=== PATIENT | female | born 1950 | race Caucasian/White ===

== ENCOUNTER 2017-04-27 00:45 | Observation (INO) | payer OTHER ==
[~2017-04-27] VITALS: Ht 157.5 cm; Wt 74.5 kg
[~2017-04-27 00:45] MED LIST: BCTROWC NAE; CEFU1TAB35 PO; CLR10 PO; DXY100 PO; ETAN50IN2 SQ; FLNIN/ NAE; GABA-113 PO
[2017-04-27] MEDS ORDERED: ASPIRIN 81 MG CHEW PO STA (00:58)
[2017-04-27] MEDS ORDERED: MoRPHine SULFATE 4 MG/ML 1 ML CARP\\VIAL IV STA (00:58)
[2017-04-27] MEDS: NITROGLYCERIN 0.4 MG SL PER TAB CHARGE SL PRN ×2 (01:07→01:12)
[2017-04-27 01:13] LABS: BASO % 0.3 %; BASO ABS # 0.02 K/uL (0-0.2); COMPLETE YES; EOS % 2.2 %; HEMATOCRIT 40.2 % (37-47); IG% 0.2 %; LYMPH % 40.3 %; LYMPH ABS # 2.42 K/uL (1.2-3.4); MEAN CELL VOLUME 92.4 fL (80-100); MEAN CORPUSCULAR HEMOGLOBIN 31.5 pg (25-34); MEAN CORPUSCULAR HGB CONC 34.1 g/dl (32-36); MEAN PLATELET VOLUME 9.8 fL (7.4-10.4); MONO % 6.8 %; NEUT % 50.2 %; PLATELET COUNT 245 K/uL (130-400); RED BLOOD COUNT 4.35 M/uL (4.2-5.4); WHITE BLOOD COUNT 6.01 K/uL (4.8-10.8)
[2017-04-27 01:34] LABS: BUN/CREATININE RATIO 25.2 (10-20); CALCIUM 9.1 mg/dl (8.5-10.1); CREATININE 0.94 mg/dl (0.60-1.20); POTASSIUM 3.9 mmol/L (3.5-5.1)
[2017-04-27] MEDS ORDERED: OPTIRAY 320 IV PRN (01:45)
--- NOTE | 2017-04-27 02:54 | EMERGENCY ROOM VISIT NOTE ---
History Report prepared by Andresibjohn: Terry Thrasher Under the Supervision of: Dr. Ismael Johnson D.O. First contact with patient: 00:53 Chief Complaint: CHEST PAIN Stated Complaint: CP History of Present Illness The patient is a 66 year old female who presents to the Emergency Room with complaints of intermittent chest pain beginning shortly prior to arrival. She states that her pain began in her back and moved into her chest. She states that her pain is still present in her back. The patient states that her pain was a 8/10 in severity initially and is now about a 6/10 in severity. She states that she was laying in bed when her pain began. She also complains of improving SOB, diaphoresis, and nausea. The patient denies any recent injury or straining. She notes that her legs felt extremely "heavy" last night. She is on Gabapentin for restless leg syndrome. Source of History: patient Onset: shortly prior to arrival Position: chest Symptom Intensity: currently 6/10 Timing: intermittent Associated Symptoms: + diaphoresis, + SOB (improving), + nausea, + back pain Review of Systems See HPI for pertinent positives and negatives. A total of ten systems were reviewed and were otherwise negative. Past Medical & Surgical Medical Problems: (1) Ovarian cyst (2) Psoriasis (3) Psoriatic arthritis Surgical Problems: (1) History of appendectomy (2) History of cholecystectomy (3) History of hysterectomy (4) S/P RITESH-BSO Family History Diabetes mellitus FHx: heart disease Hypertension Social History Smoking Status: Never Smoker Alcohol Use: none Marital Status: Housing Status: lives with significant other Occupation Status: employed Current/Historical Medications Scheduled Gabapentin (Neurontin), 300 MG PO HS Allergies Coded Allergies: Codeine (Verified Allergy, Unknown, ., 04/27/17) Physical Exam Vital Signs Date Time Temp Pulse Resp B/P (MAP) Pulse Ox O2 Delivery O2 Flow Rate FiO2 04/27/17 03:01 68 12 114/67 98 Room Air 04/27/17 02:31 67 19 110/73 96 Room Air 04/27/17 02:16 122/62 04/27/17 02:11 109/65 04/27/17 02:06 113/65 04/27/17 02:01 69 18 111/65 100 Room Air 04/27/17 01:56 106/69 04/27/17 01:41 111/67 04/27/17 01:36 107/63 04/27/17 01:31 72 18 111/66 98 Room Air 04/27/17 01:23 69 22 115/70 99 Room Air 04/27/17 01:20 65 20 113/73 96 Room Air 04/27/17 01:16 85 20 80/48 96 Room Air 04/27/17 01:13 99 20 121/88 97 Room Air 04/27/17 01:06 82 04/27/17 01:05 97 Room Air 04/27/17 01:05 78 28 140/86 98 Room Air 04/27/17 00:54 98 Room Air 04/27/17 00:45 36.9 84 20 145/88 98 Room Air Physical Exam GENERAL: Awake, alert, well-appearing, in mild distress, diaphoretic HENT: Normocephalic, atraumatic. Oropharynx unremarkable. EYES: Normal conjunctiva. Sclera non-icteric. NECK: Supple. No nuchal rigidity. FROM. No JVD. RESPIRATORY: Clear to auscultation. CARDIAC: Regular rate, normal rhythm. Extremities warm and well perfused. Pulses equal. ABDOMEN: Soft, non-distended. No tenderness to palpation. No rebound or guarding. No masses. RECTAL: Deferred. MUSCULOSKELETAL: Chest examination reveals no tenderness. The back is symmetrical on inspection without obvious abnormality. There is no CVA tenderness to palpation. No joint edema. LOWER EXTREMITIES: Calves are equal size bilaterally and non-tender. No edema. No discoloration. NEURO: Normal sensorium. No sensory or motor deficits noted. SKIN: No rash or jaundice noted. Medical Decision & Procedures ER Provider Diagnostic Interpretation: One View Chest X-ray interpreted by me: no infiltrate. Normal mediastinum. No pneumothorax. CT results per statrad and my review. CT CHEST With Contrast: No consolidation. No pleural effusion or pneumothorax. Heart size is normal. No pericardial effusion. No central pulmonary embolus. No pathologically enlarged lymph nodes. Heterogenous nodule in the right lobe of the thyroid, 2.6 cm (2/5) . Recommend ultrasound for further evaluation. Gallbladder is surgically absent. Laboratory Results 04/27/17 00:55 Red Blood Count 4.35, Mean Corpuscular Volume 92.4, Mean Corpuscular Hemoglobin 31.5, Mean Corpuscular Hemoglobin Concent 34.1, Mean Platelet Volume 9.8, Neutrophils (%) (Auto) 50.2, Lymphocytes (%) (Auto) 40.3, Monocytes (%) (Auto) 6.8, Eosinophils (%) (Auto) 2.2, Basophils (%) (Auto) 0.3, Neutrophils # (Auto) 3.02, Lymphocytes # (Auto) 2.42, Monocytes # (Auto) 0.41, Eosinophils # (Auto) 0.13, Basophils # (Auto) 0.02 04/27/17 00:55 Test 04/27/17 00:55 04/27/17 01:06 White Blood Count 6.01 K/uL (4.8-10.8) Red Blood Count 4.35 M/uL (4.2-5.4) Hemoglobin 13.7 g/dL (12.0-16.0) Hematocrit 40.2 % (37-47) Mean Corpuscular Volume 92.4 fL (80-100) Mean Corpuscular Hemoglobin 31.5 pg (25-34) Mean Corpuscular Hemoglobin Concent 34.1 g/dl (32-36) Platelet Count 245 K/uL (130-400) Mean Platelet Volume 9.8 fL (7.4-10.4) Neutrophils (%) (Auto) 50.2 % Lymphocytes (%) (Auto) 40.3 % Monocytes (%) (Auto) 6.8 % Eosinophils (%) (Auto) 2.2 % Basophils (%) (Auto) 0.3 % Neutrophils # (Auto) 3.02 K/uL (1.4-6.5) Lymphocytes # (Auto) 2.42 K/uL (1.2-3.4) Monocytes # (Auto) 0.41 K/uL (0.11-0.59) Eosinophils # (Auto) 0.13 K/uL (0-0.5) Basophils # (Auto) 0.02 K/uL (0-0.2) RDW Standard Deviation 45.3 fL (36.4-46.3) RDW Coefficient of Variation 13.4 % (11.5-14.5) Immature Granulocyte % (Auto) 0.2 % Immature Granulocyte # (Auto) 0.01 K/uL (0.00-0.02) Anion Gap 7.0 mmol/L (3-11) Est Creatinine Clear Calc Drug Dose 56.3 ml/min Estimated GFR () 73.8 Estimated GFR (Non- 63.7 BUN/Creatinine Ratio 25.2 (10-20) Calcium Level 9.1 mg/dl (8.5-10.1) Total Bilirubin 0.5 mg/dl (0.2-1) Direct Bilirubin 0.1 mg/dl (0-0.2) Aspartate Amino Transf (AST/SGOT) 15 U/L (15-37) Alanine Aminotransferase (ALT/SGPT) 25 U/L (12-78) Alkaline Phosphatase 76 U/L (45-117) Total Protein 7.6 gm/dl (6.4-8.2) Albumin 3.7 gm/dl (3.4-5.0) Bedside Troponin I < 0.030 ng/ml (0-0.045) Laboratory results reviewed by me Medications Administered Medications (Trade) Dose Ordered Sig/Adithya Route Start Time Stop Time Status Last Admin Dose Admin Aspirin (Aspirin Chew) 324 mg NOW STAT PO 04/27/17 00:58 04/27/17 01:00 DC 04/27/17 01:06 324 MG Nitroglycerin (Nitrostat Tab) 0.4 mg PRN PRN SL 04/27/17 01:00 05/27/17 00:59 04/27/17 01:12 0.4 MG Morphine Sulfate (MoRPHine SULFATE INJ) 4 mg NOW STAT IV 04/27/17 00:58 04/27/17 01:00 DC 04/27/17 01:10 4 MG ECG Indication: chest pain Rate (beats per minute): 85 Rhythm: normal sinus Findings: other (incomplete RBBB. Left anterior hemiblock. LAD. ) ED Course 0054: The patient was evaluated in room A4A. A complete history and physical exam was performed. 0058: Ordered Morphine Sulfate 4 mg IV, Aspirin Chew 324 mg PO. 0100: Ordered Nitrostat Tab 0.4 mg SL. 0300: Upon reexamination, the patient was resting comfortably. I discussed the test results and treatment plan with her. The patient will be evaluated for further management. Spoke with hospitalist, pain free, given asa; will admit for r/o chest pain; no dissection on CT Medical Decision Differential diagnosis: Etiologies such as cardiac ischemia, aortic dissection, pulmonary embolism, pneumonia, pneumothorax, musculoskeletal, infections, pericarditis, myocarditis , esophageal rupture, gastrointestinal, as well as others were entertained. Consults Time Called: [phone] Consulting Physician: Dr. Ventura Garcia Returned Call: [phone] Discussed the patient's case. The patient will be evaluated for further treatment and disposition. Impression Primary Impression: Acute chest pain Scribe Attestation The scribe's documentation has been prepared under my direction and personally reviewed by me in its entirety. I confirm that the note above accurately reflects all work, treatment, procedures, and medical decision making performed by me. Departure Information Dispostion Being Evaluated By Hospitalist Referrals Mick Downey M.D. (PCP) Patient Instructions My [facility]
--- NOTE | 2017-04-27 03:03 | History and Physical ---
History & Physical Date & Time of Service: Apr 27, 2017 at 03:03 . Chief Complaint: chest pain . Primary Care Physician: Mick Downey M.D. . History of Present Illness Source: patient, hospital records 66-year-old female. PCP is Dr. Mick Downey with [facility] in [place]. History of psoriasis and psoriatic arthritis. Developed back/chest pain this evening while watching TV. Pain started around 23:30. Experienced severe interscapular pain that radiated toward her right chest. It was associated with dyspnea, nausea, vomiting, diaphoresis. No hematemesis. She had eaten pork chops and salad earlier for dinner. Did not take any medications for relief at home. The pain persisted, so her brought her to the ED for evaluation. There she received aspirin, sublingual nitroglycerin, and IV morphine with relief of her symptoms. Pain-free at the time of my assessment. No known risk factors for ischemic heart disease. . Past Medical/Surgical History Chronic and Resolved Medical Problems: (1) Ovarian cyst Status: Resolved (2) Psoriasis Status: Chronic (3) Psoriatic arthritis Status: Chronic Surgical Problems: (4) S/P RITESH-BSO Status: Chronic (5) Status post appendectomy Status: Chronic (6) Status post cholecystectomy Status: Chronic . Family History Diabetes mellitus FHx: heart disease Hypertension Social History Smoking Status: Never Smoker Alcohol Use: very rare Marital Status: Occupational Status: employed Multi-Drug Resistant Organisms History of MDRO: No Allergies Coded Allergies: Codeine (Verified Allergy, Unknown, ., 04/27/17) Home Medications Scheduled Apremilast (Otezla 10 & 20 & 30 mg), 20 MG PO BID Gabapentin (Neurontin), 300 MG PO HS Review of Systems Constitutional: No fever, No weight loss Eyes: No worsening of vision, No diplopia ENT: No nasal symptoms, No sore throat Respiratory: No cough Cardiovascular: + problem reported (as noted above in HPI) Abdomen: + nausea, + vomiting, No pain, No diarrhea, No GI bleeding Musculoskeletal: + joint pain, + muscle pain Genitourinary - Female: No dysuria, No hematuria Neurologic: + problem reported (mild headache) Endocrine: No excessive thirst, No excessive urination Hematologic / Lymphatic: No abnormal bleeding/bruising, No swollen lymph nodes Integumentary: + problem reported (psoriasis) Physical Exam Vital Signs Date Time Temp Pulse Resp B/P (MAP) Pulse Ox O2 Delivery O2 Flow Rate FiO2 04/27/17 01:23 69 22 115/70 99 Room Air 04/27/17 01:20 65 20 113/73 96 Room Air 04/27/17 01:16 85 20 80/48 96 Room Air 04/27/17 01:13 99 20 121/88 97 Room Air 04/27/17 01:06 82 04/27/17 01:05 97 Room Air 04/27/17 01:05 78 28 140/86 98 Room Air 04/27/17 00:54 98 Room Air 04/27/17 00:45 36.9 84 20 145/88 98 Room Air General Appearance: WD/WN, no apparent distress Head: normocephalic, atraumatic Eyes: normal inspection, PERRL, EOMI, sclerae normal ENT: hearing grossly normal, pharynx normal Neck: supple, no adenopathy, thyroid normal, trachea midline Respiratory/Chest: lungs clear, no respiratory distress, no accessory muscle use Cardiovascular: regular rate, rhythm, no edema, no gallop, no JVD, + systolic murmur (I/ systolic murmur at base), + pertinent finding (carotid + radial pulses 2/2 bilat) Abdomen/GI: normal bowel sounds, non tender, soft, no organomegaly, no pulsatile mass Extremities/Musculoskelatal: no calf tenderness, no pedal edema Neurologic/Psych: shredded filler machine wrapper layer II-XII nml as tested (PERRL, EOMI, no facial palsy, no dysarthria), no motor/sensory deficits (grossly intact), alert, normal mood/ affect, oriented x 3 Skin: warm/dry, + pertinent finding (psoriatic plaques) Diagnostics Laboratory Results Results Past 24 Hours Test 04/27/17 00:55 04/27/17 01:06 Range/Units White Blood Count 6.01 4.8-10.8 K/uL Red Blood Count 4.35 4.2-5.4 M/uL Hemoglobin 13.7 12.0-16.0 g/dL Hematocrit 40.2 37-47 % Mean Corpuscular Volume 92.4 80-100 fL Mean Corpuscular Hemoglobin 31.5 25-34 pg Mean Corpuscular Hemoglobin Concent 34.1 32-36 g/dl Platelet Count 245 130-400 K/uL Mean Platelet Volume 9.8 7.4-10.4 fL Neutrophils (%) (Auto) 50.2 % Lymphocytes (%) (Auto) 40.3 % Monocytes (%) (Auto) 6.8 % Eosinophils (%) (Auto) 2.2 % Basophils (%) (Auto) 0.3 % Neutrophils # (Auto) 3.02 1.4-6.5 K/uL Lymphocytes # (Auto) 2.42 1.2-3.4 K/uL Monocytes # (Auto) 0.41 0.11-0.59 K/uL Eosinophils # (Auto) 0.13 0-0.5 K/uL Basophils # (Auto) 0.02 0-0.2 K/uL RDW Standard Deviation 45.3 36.4-46.3 fL RDW Coefficient of Variation 13.4 11.5-14.5 % Immature Granulocyte % (Auto) 0.2 % Immature Granulocyte # (Auto) 0.01 0.00-0.02 K/uL Sodium Level 141 136-145 mmol/L Potassium Level 3.9 3.5-5.1 mmol/L Chloride Level 109 98-107 mmol/L Carbon Dioxide Level 25 21-32 mmol/L Anion Gap 7.0 3-11 mmol/L Blood Urea Nitrogen 24 7-18 mg/dl Creatinine 0.94 0.60-1.20 mg/dl Est Creatinine Clear Calc Drug Dose 56.3 ml/min Estimated GFR () 73.8 Estimated GFR (Non- 63.7 BUN/Creatinine Ratio 25.2 10-20 Random Glucose 112 70-99 mg/dl Calcium Level 9.1 8.5-10.1 mg/dl Total Bilirubin 0.5 0.2-1 mg/dl Direct Bilirubin 0.1 0-0.2 mg/dl Aspartate Amino Transf (AST/SGOT) 15 15-37 U/L Alanine Aminotransferase (ALT/SGPT) 25 12-78 U/L Alkaline Phosphatase 76 45-117 U/L Total Protein 7.6 6.4-8.2 gm/dl Albumin 3.7 3.4-5.0 gm/dl Bedside Troponin I < 0.030 0-0.045 ng/ml Diagnostic Radiology Chest x-ray reviewed by the undersigned (formal interpretation by Radiology pending): Normal cardiac silhouette; no infiltrates, effusions, CHF, pneumothorax. CT chest reviewed by the undersigned. Preliminary interpretation per [facility]: no consolidation no pleural effusion or pneumothorax heart size is normal no pericardial effusion no central pulmonary embolus no pathologically enlarged lymph nodes heterogeneous nodule in the right lobe of the thyroid 2.6 cm; recommend ultrasound for further evaluation. gallbladder is surgically absent . EKG EKG performed at 00:45 reviewed and demonstrated NSR at 85 / minute, no acute ST or T-wave abnormalities. . Impression Assessment and Plan CHEST PAIN Episode of severe back/chest pain at rest while watching TV. No acute EKG changes. First troponin normal. No apparent aortic dissection or pulmonary embolism per CTA. Check serial troponins and EKGs. Consult Cardiology. Check LFT's, amylase, lipase with morning labs. Consider upper GI evaluation as outpatient. THYROID NODULE 2.5 cm nodule right lower thyroid incidentally noted on CT of chest. US recommended for further evaluation. No thyroid mass appreciated per examination. Check TSH. Outpatient follow-up with PCP recommended. PSORIASIS / PSORIATIC ARTHRITIS Continue Otezla. VTE PROPHYLAXIS Low-moderate risk for VTE. SQ enoxaparin. Ambulate. RESUSCITATION STATUS Full code. DISPOSITION Observation status on Telemetry Unit. Expected discharge to home. Medical follow-up with Dr. Downey. . VTE Prophylaxis Given or contraindicated: Enoxaparin (Lovenox)SQ
[2017-04-27] MEDS ORDERED: NITROGLYCERIN 0.4 MG SL PER TAB CHARGE SL PRN (03:15)
[2017-04-27] MEDS ORDERED: ACETAMINOPHEN 325 MG TAB PO PRN (03:15)
[2017-04-27] MEDS ORDERED: MoRPHine SULFATE 2 MG/ML CARP IV PRN (03:15)
[2017-04-27 04:00] VITALS: BP 134/70; PULSE 68; TEMP 36.5; O2SAT 99; Ht 157.5 cm; Wt 74.5 kg
[2017-04-27] MEDS ORDERED: APRE1TAB4 PO (04:19)
[2017-04-27 05:56] LABS: ALT/SGPT 22 U/L (12-78); AMYLASE 48 U/L (25-115); AST/SGOT 12 U/L (15-37); BLOOD UREA NITROGEN 24 mg/dl (7-18); BUN/CREATININE RATIO 36.9 (10-20); CALCIUM 8.2 mg/dl (8.5-10.1); CARBON DIOXIDE 24 mmol/L (21-32); CHLORIDE 112 mmol/L (98-107); CREATININE 0.64 mg/dl (0.60-1.20); GLUCOSE 109 mg/dl (70-99); POTASSIUM 4.3 mmol/L (3.5-5.1); SODIUM 140 mmol/L (136-145)
[2017-04-27] MEDS ORDERED: IV FLUIDS COMPLETED PRN (06:00)
[2017-04-27 06:05] LABS: PROTHROMBIN TIME (PATIENT) 10.5 SECONDS (9.0-12.0)
[2017-04-27 06:11] LABS: ALKALINE PHOSPHATASE 62 U/L (45-117); CHOLESTEROL 123 mg/dl (0-200); CHOLESTEROL/HDL RATIO 2.7; HDL CHOLESTEROL 45 mg/dl; LDL CHOLESTEROL CALCULATED 48 mg/dl; THYROID STIMULATING HORMONE 0.293 uIu/ml (0.300-4.500); TRIGLYCERIDES 151 mg/dl (0-150); VERY LOW DENSITY LIPOPROT CALC 30 mg/dl
--- NOTE | 2017-04-27 06:51 | DIAGNOSTIC IMAGING REPORT ---
CHEST ONE VIEW PORTABLE CLINICAL HISTORY: 66 years-old Female presenting with CHEST PAIN. TECHNIQUE: Portable upright AP view of the chest was obtained. COMPARISON: 02/11/2016. FINDINGS: Cardiomediastinal silhouette normal. Lungs and pleural spaces clear. Osseous structures and upper abdomen normal. IMPRESSION: 1. No acute cardiopulmonary disease. Electronically signed by: Campos Doherty M.D. 04/27/2017 6:50 AM Dictated Date/Time: 04/27/2017 6:49 AM
--- NOTE | 2017-04-27 07:35 | DIAGNOSTIC IMAGING REPORT ---
CT SCAN OF THE CHEST WITH IV CONTRAST CLINICAL HISTORY: Atypical chest pain. COMPARISON STUDY: Chest x-ray dated 04/19/2017. TECHNIQUE: Following the IV administration of 92 cc of Optiray 320, CT scan of the thorax was performed from the thoracic inlet to the upper abdomen. Images are reviewed in the axial, sagittal, and coronal planes. IV contrast was administered without complication. A dose lowering technique was utilized adhering to the principles of ALARA. The examination is degraded by motion artifact. CT DOSE: 334.31 mGycm FINDINGS: Thyroid: Imaged portions of the thyroid gland appear enlarged and heterogeneous. There is a 2.3 cm low-attenuation nodule in the right thyroid lobe. Additional smaller nodules are seen bilaterally. Thoracic aorta: The thoracic aorta is normal in caliber and demonstrates standard 3-vessel arch anatomy. No dissection is seen. Pulmonary vasculature: The pulmonary trunk is normal in caliber. There are no filling defects identified in the central pulmonary vessels to indicate pulmonary embolus. Note that this examination was not protocoled for evaluation of the pulmonary arteries. Heart: The heart is mildly enlarged and without pericardial effusion. Lungs and pleural spaces: The lungs and pleural spaces are clear noting dependent atelectasis. The trachea and central airways are patent. Mediastinum: There is no mediastinal lymphadenopathy. Daxa: Clear. Axillae: There is no axillary lymphadenopathy. Upper abdomen: There is a tiny hiatal hernia. Cholecystectomy clips are noted. Skeletal structures: The skeletal structures are osteopenic. Mild degenerative change is present throughout the thoracic spine. No lytic or blastic bony lesions are seen. IMPRESSION: 1. The lungs are clear. 2. Mild cardiomegaly. 3. Enlarged thyroid gland with numerous nodules measuring up to 2.3 cm. Correlation with nonemergent thyroid ultrasound is recommended for further assessment. 4. No adenopathy is seen. Electronically signed by: Carl Hamilton M.D. 04/27/2017 7:34 AM Dictated Date/Time: 04/27/2017 7:30 AM
[2017-04-27 08:00] VITALS: BP 107/67; PULSE 68; TEMP 36.6; O2SAT 97
[2017-04-27] MEDS ORDERED: ENOXAPARIN 40 MG/0.4 ML SYR SC SCH (09:00)
[2017-04-27] MEDS ORDERED: APREMILAST PO SCH (09:00)
--- NOTE | 2017-04-27 09:49 | Procedure Note ---
Procedure Note Date of Service Apr 27, 2017. Procedure Note Nonischemic exercise stress echocardiogram pain likely secondary to muscle spasm and subsequent rib somatic dysfunction. no further cardiac testing necessary ok to d/c to home from cardiac standpoint full consult to follow
--- NOTE | 2017-04-27 10:37 | EXERCISE STRESS ECHO ---
*NOTICE TO RECEIVING DEMOCRAT AGENCY This information is strictly Confidential and protected under [place] law. [place] law prohibits you from making any further disclosure of this information unless further disclosure is expressly permitted by the written consent of the person to whom it pertains or is authorized by law. A general authorization for the release of medical or other information is not sufficient for this purpose. Hospital accepts no responsibility if the information is made available to any other person, INCLUDING THE PATIENT. Interpretation Summary * : PETAR PAUL Study Date: 04/27/2017 09:05 AM BP: 120/74 mmHg * Patient Location: .2E\S\E206\S\1 HR: 59 * : 1950 (M/d/yyyy) Gender: Female Height: 62 in * Age: 66 yrs Ethnicity: [place] Weight: 164 lb * Ordering Physician: Ismael Arellano * Referring Physician: Self, Referred * Performed By: Misti Dasilva [facility] * * Reason For Study: CHEST PAIN * BSA: 1.8 m2 * -- Conclusions -- * Nonischemic exercise stress echocardiogram. * No arrhythmias. * Normal HR and BP response to exercise. * Below average exercise tolerance. * At rest, normal LV chamber size with mild concentric LVH. * Normal LV systolic function, EF 55-60%. * No segmental left ventricular wall motion abnormalities are noted. * Grade I diastolic dysfunction. * Congenitally bicuspid aortic valve with mild calcifications, no stenosis or regurgitation. Procedure Details * ECHOEX, CPT #[id number] * ECHO COLOR FLOW, CPT #[id number] * ECHO DOPPLER, CPT #[id number] Left Ventricle * The left ventricle is normal in size. * There is mild concentric left ventricular hypertrophy. * Ejection Fraction = 55-60%. * Left ventricular systolic function is normal. * No segmental left ventricular wall motion abnormalities are noted. * Resting wall motion: Normal. Stress wall motion: Appropriate increase in Left ventricular systolic function and decrease in cavity size. No stress induced segmental wall motion abnormalities. Right Ventricle * The right ventricular cavity size is normal (basal dimension <4.2 cm in right ventricular apical 4-chamber view). * The right ventricular systolic function is normal as assessed by tricuspid annular plane systolic excursion (TAPSE) (normal >1.5 cm). Atria * The left atrial size is normal. * Right atrial size is normal. * No ASD detected; PFO is not assessed. Mitral Valve * The mitral valve is normal in structure and function. Tricuspid Valve * The tricuspid valve is normal in structure and function. Aortic Valve * The aortic valve is bicuspid. * Aortic valve sclerosis moderate, without significant aortic valvular stenosis. * There is no significant aortic regurgitation. Pulmonic Valve * The pulmonary valve is not well seen, but the Doppler examination is normal without significant regurgitation or stenosis. Great Vessels * The aortic root is normal size. Pericardium * There is no pericardial effusion. Stress Parameters * Normal baseline electrocardiogram. * Stress ECG: No ST changes. No arrhythmias. * No arrhythmia were noted with stress. * The stress portion of this study was personally supervised by the undersigned interpreting physician. * Rest heart rate was '59' BPM. * Rest blood pressure was '120/74' * Maximum heart rate achieved was 153 bpm. * Maximum heart rate was 98 % of maximum age-predicted heart rate. * Maximum blood pressure was '172/43' * Total exercise time was '06:30' * Maximum exercise MET level achieved was '7.70' METS * Maximum treadmill speed was '3.40' miles per hour. * Maximum treadmill elevation was '14.00'% grade. Left Ventricular Diastolic Function * Grade I diastolic dysfunction, (abnormal relaxation pattern). MMode 2D Measurements and Calculations IVSd 1.1 cm IVSs 1.1 cm LVIDd 4.2 cm LVIDs 2.9 cm LVPWd 1.1 cm LVPWs 1.2 cm IVS/LVPW 1.0 FS 30.3 % EDV(Teich) 76.7 ml ESV(Teich) 32.2 ml EF(Teich) 58.0 % EDV(cubed) 71.9 ml ESV(cubed) 24.4 ml EF(cubed) 66.1 % % IVS thick 1.5 % % LVPW thick 14.5 % LV mass(C)d 147.8 grams LV mass(C)dI 84.1 grams/m\S\2 LV mass(C)s 97.3 grams LV mass(C)sI 55.4 grams/m\S\2 SV(Teich) 44.5 ml SI(Teich) 25.4 ml/m\S\2 SV(cubed) 47.5 ml SI(cubed) 27.0 ml/m\S\2 Ao root diam 2.8 cm Ao root area 6.3 cm\S\2 LA dimension 3.3 cm LA/Ao 1.2 LVOT diam 1.9 cm LVOT area 2.8 cm\S\2 LVAd ap4 28.1 cm\S\2 LVLd ap4 7.1 cm EDV(MOD-sp4) 91.1 ml EDV(sp4-el) 95.1 ml LVAs ap4 18.7 cm\S\2 LVLs ap4 6.0 cm ESV(MOD-sp4) 48.0 ml ESV(sp4-el) 49.2 ml EF(MOD-sp4) 47.3 % EF(sp4-el) 48.2 % LVAd ap2 31.6 cm\S\2 LVLd ap2 7.3 cm EDV(MOD-sp2) 109.9 ml EDV(sp2-el) 116.4 ml LVAs ap2 20.3 cm\S\2 LVLs ap2 6.1 cm ESV(MOD-sp2) 55.0 ml ESV(sp2-el) 57.5 ml EF(MOD-sp2) 49.9 % EF(sp2-el) 50.6 % LVLd %diff 3.1 % EDV(MOD-bp) 103.5 ml LVLs %diff 1.0 % ESV(MOD-bp) 52.5 ml EF(MOD-bp) 49.3 % SV(MOD-sp4) 43.1 ml SI(MOD-sp4) 24.5 ml/m\S\2 SV(MOD-sp2) 54.9 ml SI(MOD-sp2) 31.2 ml/m\S\2 SV(MOD-bp) 51.0 ml SI(MOD-bp) 29.0 ml/m\S\2 SV(sp4-el) 45.8 ml SI(sp4-el) 26.1 ml/m\S\2 SV(sp2-el) 58.9 ml SI(sp2-el) 33.5 ml/m\S\2 Doppler Measurements and Calculations MV E max alejandra 99.2 cm/sec MV A max alejandra 126.7 cm/sec MV E/A 0.78 MV P1/2t max alejandra 109.5 cm/sec MV P1/2t 69.8 msec MVA(P1/2t) 3.2 cm\S\2 MV dec slope 459.6 cm/sec\S\2 MV dec time 0.25 sec Ao V2 max 207.2 cm/sec Ao max PG 17.2 mmHg Ao max PG (full) 14.2 mmHg CHIKI(V,A) 1.2 cm\S\2 CHIKI(V,D) 1.2 cm\S\2 LV V1 max PG 3.0 mmHg LV V1 max 86.8 cm/sec MR mean alejandra 121.1 cm/sec MR mean PG 7.2 mmHg MR VTI 40.1 cm PA V2 max 78.9 cm/sec PA max PG 2.5 mmHg TR max alejandra 246.6 cm/sec
--- NOTE | 2017-04-27 11:34 | CARDIOLOGY CONSULTATION ---
DATE OF CONSULTATION: 04/27/2017 CONSULTATION REQUESTED BY: Dr. Whitehead. REASON FOR CONSULTATION: Chest pain. HISTORY OF PRESENT ILLNESS: Mrs. Venegas is a very pleasant 66-year-old woman who presented to [facility] early in the a.m. of 04/27/2017 with a complaint of chest and back pain. The patient states that she went to bed last evening in her normal state of health and she was lying in bed, watching television with her when she suddenly developed severe back pain. She describes a very sharp stabbing pain that was severe enough to take her breath away. She also became nauseated with it due to the severity and she states that the pain started radiating around her rib cage and into her chest. The discomfort in her chest she describes as a chest pressure sensation. She never had any similar episodes in the past. This lasted for approximately 40 minutes and resolved on its own before any medical intervention. She was then brought into the Emergency Department by her . Initial evaluation was unremarkable and she was admitted to telemetry. A followup blood work overnight was unremarkable. Currently, the patient states that she is still sore in her mid back where the pain started, but otherwise feeling well and has no recurrence nearly as severe as her presentation. PAST SURGICAL HISTORY: 1. Cholecystectomy. 2. Appendectomy. 3. Total abdominal hysterectomy. MEDICAL ILLNESSES: 1. Recurrent ovarian cyst. 2. Psoriatic arthritis. FAMILY HISTORY: Denies any premature coronary artery disease or sudden cardiac . SOCIAL HISTORY: Denies any alcohol, tobacco or recreational drug use. She is . She lives at home with her . She has 4 children. 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 She does not exercise. REVIEW OF SYSTEMS: As per HPI, all other review of systems reviewed and negative at this time. ALLERGIES: CODEINE. MEDICATIONS AN OUTPATIENT: 1. Neurontin daily. 2. Otezla b.i.d. PHYSICAL EXAMINATION: VITALS: Temperature 36.6, pulse 68, respiratory rate 12, and blood pressure 107/67. GENERAL: Awake, alert, and oriented x3 in no acute distress. HEENT: Normocephalic and atraumatic. Pupils equal, round, and reactive to light and accommodation. Extraocular muscles intact. Anicteric sclerae. Moist mucous membranes. NECK: No JVD and no bruit. CARDIOVASCULAR: Regular. Positive S4. Normal S1 and S2. No S3. Slight 2/6 mid to late systolic ejection murmur greatest at the right sternal border second intercostal space without radiation. No rubs. PULMONARY: Clear to auscultation bilaterally. No rales, rhonchi, or wheezing. ABDOMEN: Bowel sounds x4. Soft. No rebound, guarding, or tenderness. No organomegaly. EXTREMITIES: No clubbing, cyanosis or edema. +2 pedal pulses bilaterally. SKIN: Warm and dry. MUSCULOSKELETAL: Direct palpation of her right mid scapular area was able to reproduce the discomfort. TEST RESULTS: Exercise stress echocardiogram was nonischemic with reduced exercise tolerance. Resting study did show a likely bicuspid aortic valve with mild sclerosis. No stenosis or regurgitation. IMPRESSION: 1. Chest pain. 2. Muscle spasm with concomitant somatic dysfunction of the right ribcage. 3. Congenital bicuspid aortic valve without stenosis or regurgitation. RECOMMENDATIONS: It was my pleasure to see Mrs. Venegas in consultation today. The patient was counseled that given the fact that her stress test was nonischemic, I do believe her chest pain is secondary to muscle spasm and concomitant somatic dysfunction of her right ribcage. So, no further cardiac testing or intervention is necessary at this time. I would recommend supportive care. Otherwise, no cardiac followup is necessary. No medications will be started at this point. I recommend she continue to follow with her primary care doctor for monitoring of her bicuspid aortic valve, but there is no indication for followup study at this point. Thank you very much for allowing me to participate in the care of your patient.
[2017-04-27 12:00] VITALS: BP 100/60; PULSE 72; TEMP 36.7; O2SAT 97
[2017-04-27 15:41] VITALS: BP 129/68; PULSE 71; TEMP 36.7; O2SAT 99
--- NOTE | 2017-04-27 16:48 | Discharge Instructions ---
Discharge Instructions Date of Service Apr 27, 2017. Admission Reason for Admission: Acute Chest Pain Discharge Discharge Diagnosis / Problem: Chest pain-noncardiac, likely 2/2 somatic dysfunction Discharge Goals Goal(s): Prevent Disease Progression Activity Recommendations Activity Limitations: per Instructions/Follow-up section . Instructions / Follow-Up Instructions / Follow-Up Please continue medications as instructed. It is recommended that you follow-up with Dr. Thompson (primary care physician ) within one week for follow-up from this hospitalization, and to make sure you are doing well post discharge. No further cardiac testing or cardiac follow-up is needed. You had a CT scan which revealed abnormal thyroid nodules, one which is 2.3cm, that will need to be followed up by your PCP. Specifically, it is recommended that you get a thyroid ultrasound of the nodule for evaluation, which can be ordered at your follow-up appointment. It was a pleasure taking care of you! Call if you have any questions or problems. You can reach a [facility] hospitalist on duty at [facility] 24 hours a day by calling [phone]. Take care of yourself. Charmaine Bell DO [facility] Hospitalist Current Hospital Diet Patient's current hospital diet: AHA Diet (Heart Healthy) Discharge Diet Recommended Diet: AHA Diet (Heart Healthy) Procedures Procedures Performed: Treadmill stress test TTE Pending Studies Studies pending at discharge: no Laboratory Results Lipid Panel Test 04/27/17 04:56 Range/Units Triglycerides Level 151 H 0-150 mg/dl Cholesterol Level 123 0-200 mg/dl HDL Cholesterol 45 mg/dl Cholesterol/HDL Ratio 2.7 LDL Cholesterol, Calculated 48 mg/dl Medical Emergencies . Who to Call and When: Medical Emergencies: If at any time you feel your situation is an emergency, please call 911 immediately. . Non-Emergent Contact Non-Emergency issues call your: Primary Care Provider . . "Provider Documentation" section prepared by Charmaine Bell. . VTE Core Measure Inpt VTE Proph given/why not?: Enoxaparin (Lovenox)SQ
--- NOTE | 2017-04-27 16:54 | Discharge Summary ---
Discharge Summary Date of Service Apr 27, 2017. Discharge Summary Admission Date: Apr 27, 2017 at 03:06 Discharge Date: Apr 27, 2017 Discharge Disposition: Home Principal Diagnosis: Chest pain likely somatic dysfunction Bicuspid Aortic Valve RLS Psoriatic Arthritis Procedures: Treadmill Stress Test Resting TTE Vaccinations: None. Consultations: Cardiology-Dr. Arellano Pending Studies/Follow-Up: see instructions below Medication Reconciliation Continued Medications: Apremilast (Otezla 10 & 20 & 30 mg) 1 Tab Tab 20 MG PO BID Gabapentin (Neurontin) 300 Mg Cap 300 MG PO HS, CAP Admission Information HPI (per Admitting provider): 66-year-old female. PCP is Dr. Mick Downey with [facility] in [place]. History of psoriasis and psoriatic arthritis. Developed back/chest pain this evening while watching TV. Pain started around 23:30. Experienced severe interscapular pain that radiated toward her right chest. It was associated with dyspnea, nausea, vomiting, diaphoresis. No hematemesis. She had eaten pork chops and salad earlier for dinner. Did not take any medications for relief at home. The pain persisted, so her brought her to the ED for evaluation. There she received aspirin, sublingual nitroglycerin, and IV morphine with relief of her symptoms. Pain-free at the time of my assessment. No known risk factors for ischemic heart disease. . Physical Exam (per Admitting): General Appearance: WD/WN, no apparent distress Head: normocephalic, atraumatic Eyes: normal inspection, PERRL, EOMI, sclerae normal ENT: hearing grossly normal, pharynx normal Neck: supple, no adenopathy, thyroid normal, trachea midline Respiratory/Chest: lungs clear, no respiratory distress, no accessory muscle use Cardiovascular: regular rate, rhythm, no edema, no gallop, no JVD, + systolic murmur (I/ systolic murmur at base), + pertinent finding (carotid + radial pulses 2/2 bilat) Abdomen/GI: normal bowel sounds, non tender, soft, no organomegaly, no pulsatile mass Extremities/Musculoskelatal: no calf tenderness, no pedal edema Neurologic/Psych: 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 Initial evaluation in the ER was unremarkable and she was admitted to telemetry for overnight monitoring. Serial cardiac enzymes were negative. She underwent a stress echocardiogram that was nonischemic with reduced exercise tolerance. The study did show a bicuspid aortic valve with mild sclerosis. No stenosis or regurgitation was present. Subsequently, her chest pain was thought 2/2 muscle spasm with concomitant somatic dysfunction of the right ribcage. She remained hemodynamically stable and afebrile. Physical exam on day of discharge was unremarkable; she was mentating clearly and was ambulatory. She was discharged in stable condition with close PCP followup. No further cardiac workup or follow-up was recommended. Total time spent on discharge = 60 minutes This includes examination of the patient, discharge planning, medication reconciliation, and communication with other providers. Discharge Instructions Discharge Instructions Date of Service Apr 27, 2017. Admission Reason for Admission: Acute Chest Pain Discharge Discharge Diagnosis / Problem: Chest pain-noncardiac, likely 2/2 somatic dysfunction Discharge Goals Goal(s): Prevent Disease Progression Activity Recommendations Activity Limitations: per Instructions/Follow-up section . Instructions / Follow-Up Instructions / Follow-Up Please continue medications as instructed. It is recommended that you follow-up with Dr. Thompson (primary care physician ) within one week for follow-up from this hospitalization, and to make sure you are doing well post discharge. No further cardiac testing or cardiac follow-up is needed. You had a CT scan which revealed abnormal thyroid nodules, one which is 2.3cm, that will need to be followed up by your PCP. Specifically, it is recommended that you get a thyroid ultrasound of the nodule for evaluation, which can be ordered at your follow-up appointment. It was a pleasure taking care of you! Call if you have any questions or problems. You can reach a [facility] hospitalist on duty at [facility] [address] 24 hours a day by calling [phone]. Take care of yourself. Charmaine Bell, DO [place] [facility] Hospitalist Additional Copies To Dr Mick Thompson
[2017-04-27 16:56] VITALS: BP 129/68; PULSE 71; TEMP 36.7; O2SAT 99
[2017-04-27] MEDS ORDERED: GABAPENTIN 300 MG CAP PO SCH (21:00)
== END 2017-04-27 17:47 | disposition home or self-care (01) ==
LOC: C.EDB 00:46 → C.2E 03:06 → ENRESERV 03:22
PROVIDERS: ADMIT Hospitalist; ATTEND Hospitalist
DX: R07.9 Chest pain, unspecified (principal); M62.838 Other muscle spasm; L40.9 Psoriasis, unspecified; L40.50 Arthropathic psoriasis, unspecified; Z90.89 Acquired absence of other organs; Z90.49 Acquired absence of other specified parts of digestive tract; Z90.710 Acquired absence of both cervix and uterus; Z83.3 Family history of diabetes mellitus; Z82.49 Family history of ischemic heart disease and other diseases of the circulatory system

== ENCOUNTER 2021-12-28 20:42 | Inpatient (IN) ==
[2021-12-28] MEDS ORDERED: SODIUM CHLORIDE 0.9% 1000ML 1,000 ML IV STA (20:53)
[2021-12-28] MEDS ORDERED: ONDANSETRON INJ 2 MG/ML 2 ML VIAL IV STA (20:53)
[2021-12-28] MEDS ORDERED: MoRPHine SULFATE 4 MG/ML 1 ML CARP\\VIAL IV STA ×2 (20:53→22:32)
[2021-12-28 21:05] LABS: Basophils # (auto) 0.02 K/uL (0-0.2); Basophils % (auto) 0.2 %; Eosinophils # (auto) 0.09 K/uL (0-0.5); Eosinophils % (auto) 0.8 %; Hemoglobin 14.2 g/dL (12.0-16.0); Immature Granulocytes # (auto) 0.01 K/uL (0.00-0.02); Immature Granulocytes % (auto) 0.1 %; Lymphocytes # (auto) 2.08 K/uL (1.2-3.4); Lymphocytes % (auto) 18.7 %; Mean Corpuscular Hemoglobin 31.7 pg (25-34); Mean Corpuscular Hgb Conc 34.6 g/dL (32-36); Mean Corpuscular Volume 91.5 fL (80-100); Monocytes # (auto) 0.56 K/uL (0.11-0.59); Neutrophils # (auto) 8.37 K/uL (1.4-6.5); Neutrophils % (auto) 75.2 %; Platelet Count 310 K/uL (130-400); RDW Coefficient of Variation 12.8 % (11.5-14.5); RDW Standard Deviation 43.1 fL (36.4-46.3); Red Blood Count 4.48 M/uL (4.2-5.4); White Blood Count 11.13 K/uL (4.8-10.8)
--- NOTE | 2021-12-28 21:17 | Emergency Department Note ---
History of Present Illness General Chief complaint: Abdominal Pain Stated complaint: DIVERTICULITIS FLARE Time Seen by Provider: 12/28/21 20:49 History of Present Illness Maximum Pain Intensity: 11 71-year-old female presents to the ED with a chief complaint of left lower quadrant abdominal pain. The patient had diverticulitis last week. She states that she was on a course of Augmentin and finished that yesterday. She states that her symptoms seem to be better the day that she left the ER. She states that her pain increased today after eating solids. The patient states that she had a last bowel movement today around 4 PM. The patient took Metamucil which seemed to cause her to have more bowel movements today. Her pain is worse with walking. It is also tender in the left lower quadrant when she pushes there. She is concerned about a perforation. Home Medications Medication Instructions Recorded Confirmed Type atorvastatin 10 mg tablet 10 mg PO QPM 02/28/21 12/28/21 History bupropion HCl 150 mg 24 hr tablet, 150 mg PO QPM 02/28/21 12/28/21 History extended release colesevelam 625 mg tablet 625 mg PO TID 02/28/21 12/28/21 History gabapentin 300 mg capsule 300 mg PO QID 02/28/21 12/28/21 History olmesartan 20 mg tablet 20 mg PO QPM 02/28/21 12/28/21 History aspirin 81 mg tablet,delayed 81 mg PO DAILY 11/02/21 12/28/21 History release guselkumab 100 mg/mL subcutaneous 100 mg SUBCUT .Q8WK 11/02/21 12/28/21 History auto-injector (Tremfya) hydrocodone 5 mg-acetaminophen 325 1 tab PO UD PRN 11/02/21 12/28/21 History mg tablet Saccharomyces boulardii 250 mg 250 mg PO BID #20 cap 12/21/21 12/28/21 Rx capsule (Florastor) ondansetron 4 mg disintegrating 4 mg PO Q6H PRN #14 tab 12/21/21 12/28/21 Rx tablet Allergies Allergy/AdvReac Type Severity Reaction Status Date / Time codeine AdvReac Intermediate HIT OR Verified 12/28/21 21:37 MISS, NAUSEA Past Med/Surg History Medical History Abnormal gynecological examination HX OF TOTAL OF 4 OVARIES AND 2 UTERUS...HX NUMEROUS VARIOUS OVARIAN BENIGN TUMORS Acid reflux Anxiety and depression Drug interaction PT REPORTS AFTER RECEIVING BOTH COVID 19 VACCINATIONS BECAME DEATHLY ILL WITH NAUSEA AND BODY ACHES. PT DISCUSSED WITH RHEUMATOLOGY AND TOLD WAS BELEIVED TO BE DUE TO REACTION BETWEEN COSENTYX AND THE VACCINE. HTN (hypertension) Hypercholesteremia Lyme disease Psoriasis Psoriatic arthritis Thyroid mass BENIGN MASS RIGHT THYROID Surgical History History of cataract surgery History of colonoscopy History of endoscopy S/P RITESH-BSO HX Status post appendectomy HX Status post cholecystectomy HX Family History Mother Family history of diabetes mellitus Social History Smoking Status: Never smoker Second Hand Exposure: No; Hx Alcohol Use: No Hx Substance Use: No Preferred Language: Gibraltarian Communication Ability: Effective Global Sourcing Manager Required: No Beliefs That Will Affect Care: None Current Living Situation: Spouse Current Living Situation Comment: LIVE ON FAMILY FARM Feels Safe at Home: Yes Assistive Devices: Glasses Review of Systems A total of 10 systems reviewed and were otherwise negative Physical Exam Vital Signs Vital Signs - 24 hr 12/28/21 20:42 12/28/21 22:53 Temperature 37.4 C Temperature Source Temporal Artery Scan Pulse Rate 121 H 76 Pulse Rate [Finger] 79 Pulse Rhythm Regular Pulse Rhythm [Finger] Regular Pulse Strength [Finger] Normal Respiratory Rate 20 16 Respiratory Effort / Characteristics Non-Labored Spontaneous Non-Labored Spontaneous Respiratory Depth Normal Normal Respiratory Pattern Regular Regular Blood Pressure 139/66 Blood Pressure [Right Arm] 131/75 Blood Pressure Mean 90 Blood Pressure Mean [Right Arm] 93 Blood Pressure Position Sitting Blood Pressure Position [Right Arm] Semi-fowlers Pulse Oximetry 97 99 Oxygen Delivery Method Room Air Room Air Sepsis Recent Fever Within 48 Hours No Sepsis New/Unexplained Change in Mental Status No Sepsis Action Taken by Nursing No Action Required CONSTITUTIONAL/VITAL SIGNS: Reviewed / noted above. GENERAL: Non-toxic in appearance. INTEGUMENTARY: Warm, dry, and [place]. HEAD: Normocephalic. EYES: without scleral icterus or trauma. ENT/OROPHARYNX: clear and moist. LYMPHADENOPATHY/NECK: Is supple without lymphadenopathy or meningismus. RESPIRATORY: Clear to auscultation bilaterally. No increased work of breathing. CARDIOVASCULAR: Regular rate and rhythm. GI/ABDOMEN: Soft and tender in the left lower quadrant.. No organomegaly or pulsatile mass. EXTREMITIES: Warm and well perfused. BACK: No CVA tenderness. NEUROLOGICAL: Intact without focal deficits. PSYCHIATRIC: normal affect. MUSCULOSKELETAL: Normally developed with good muscle tone. TRIAGE NURSING DOCUMENTATION REVIEWED. Course Administered Medications Piperacillin Sod/Tazobactam Sod (Zosyn) 4.5 gm in 120 mls @ 240 mls/hr IV NOW ONE Stop: 12/28/21 23:53 Last Admin: 12/28/21 23:31 Dose: 240 mls/hr Documented by: [id number] Discontinued Medications Sodium Chloride (Nss 1000ml) 1,000 mls @ 999 mls/hr IV .Q1H1M STA Stop: 12/28/21 21:53 Last Infusion: 12/28/21 22:48 Dose: 0 mls/hr Documented by: [id number] Admin: 12/28/21 21:01 Dose: 999 mls/hr Documented by: [id number] Ioversol (Optiray 320 125ml) 100 ml IV ONCE ONE Stop: 12/28/21 22:53 Last Admin: 12/28/21 23:08 Dose: 100 ml Documented by: [id number] Ioversol (Optiray 320 100ml) 100 ml IV ONCE ONE Stop: 12/28/21 22:55 Last Admin: 12/28/21 22:54 Dose: 93 ml Documented by: [id number] Morphine Sulfate (Morphine Sulfate 4 Mg/Ml 1 Ml Carp\Vial) 4 mg IV NOW STA Stop: 12/28/21 20:54 Last Admin: 12/28/21 21:01 Dose: 4 mg Documented by: [id number] Morphine Sulfate (Morphine Sulfate 4 Mg/Ml 1 Ml Carp\Vial) 4 mg IV NOW STA Stop: 12/28/21 22:33 Last Admin: 12/28/21 22:46 Dose: 4 mg Documented by: [id number] Ondansetron HCl (Ondansetron Inj 2 Mg/Ml 2 Ml Vial) 4 mg IV NOW STA Stop: 12/28/21 20:54 Last Admin: 12/28/21 21:01 Dose: 4 mg Documented by: [id number] Medical Decision Making Differential Diagnosis Differential considered: pancreatitis, hepatitis, acute cholecystitis, AAA, UTI, pyelonephritis, kidney stones, appendicitis, diverticulitis, shingles, bowel obstruction, mesenteric ischemia, intussusception,hernia. Medical Records Attestation: I reviewed the patient's medical records. Home Medications Current Medication List: was personally reviewed by me Laboratory Data Attestation: I reviewed the patient's lab results. Result diagrams: 12/28/21 20:56 12/28/21 20:56 Lab Results 12/28/21 12/28/21 12/28/21 Range/Units 20:56 20:56 22:50 WBC 11.13 H (4.8-10.8) K/uL RBC 4.48 (4.2-5.4) M/uL Hgb 14.2 (12.0-16.0) g/dL Hct 41.0 (37-47) % MCV 91.5 (80-100) fL MCH 31.7 (25-34) pg MCHC 34.6 (32-36) g/dL RDW Std Deviation 43.1 (36.4-46.3) fL RDW Coeff of Gisella 12.8 (11.5-14.5) % Plt Count 310 (130-400) K/uL MPV 10.0 (7.4-10.4) fL Immature Gran % (Auto) 0.1 % Neut % (Auto) 75.2 % Lymph % (Auto) 18.7 % [place] % (Auto) 5.0 % Eos % (Auto) 0.8 % Baso % (Auto) 0.2 % Neut # (Auto) 8.37 H (1.4-6.5) K/uL Lymph # (Auto) 2.08 (1.2-3.4) K/uL [place] # (Auto) 0.56 (0.11-0.59) K/uL Eos # (Auto) 0.09 (0-0.5) K/uL Baso # (Auto) 0.02 (0-0.2) K/uL Immature Gran # (Auto) 0.01 (0.00-0.02) K/uL Sodium 137 (136-145) mmol/L Potassium 3.8 (3.5-5.1) mmol/L Chloride 104 (98-107) mmol/L Carbon Dioxide 24 (21-32) mmol/L Anion Gap 9 (3-11) BUN 15 (6-23) mg/dl Creatinine 0.77 (0.6-1.2) mg/dl Est Cr Clr Drug Dosing Not Reportable Est GFR ( Amer) 90.7 ml/min Est GFR (Non-Af Amer) 78.2 ml/min BUN/Creatinine Ratio 19.5 (10-20) Glucose 101 H (70-99(Fasting)) mg/dl Calcium 9.7 (8.5-10.1) mg/dl Total Bilirubin 0.6 (0.2-1.0) mg/dl AST 13 (13-39) U/L ALT 12 (7-52) U/L Alkaline Phosphatase 103 (34-104) U/L Total Protein 7.6 (6.0-8.3) gm/dl Albumin 4.5 (3.4-5.0) gm/dl Globulin 3.1 (2.5-4.0) gm/dl Albumin/Globulin Ratio 1.5 (0.9-2) Lipase 36 (11-82) U/L Urine Color Yellow Urine Appearance Clear (Clear) Urine pH 5.5 (4.5-7.5) Ur Specific [place] 1.018 (1.000-1.030) Urine Protein Negative (Negative) Urine Glucose (UA) Negative (Negative) Urine Ketones Negative (Negative) Urine Blood Negative (Negative) Urine Nitrite Negative (Negative) Urine Bilirubin Negative (Negative) Urine Urobilinogen Negative (Negative) Ur Leukocyte Esterase Negative (Negative) Imaging Data Radiologist's Impression: CT scan of the abdomen pelvis shows worsening diverticulitis. MDM Narrative 71-year-old female presents with left lower quadrant abdominal pain in the setting of just completing a course of antibiotics yesterday for diverticulitis. Vital signs reveal tachycardia. Exam reveals tenderness in the left lower quadrant. The patient CBC was unremarkable. Chemistry panel was unremarkable. Urine did not show infection. CT scan of the abdomen pelvis shows worsening diverticulitis. The patient will be admitted by the hospitalist. She was treated with IV Zosyn here. She was also given IV morphine for pain. She was given IV Zofran and IV fluids. Impression & Plan Acute diverticulitis Discharge Plan Visit Data Chief Complaint: Abdominal Pain Stated Complaint: DIVERTICULITIS FLARE ED Provider: Singh Muhammad Discharge Problem: Acute diverticulitis Patient Disposition: Being Evaluated by Hospitalist Forms Stand Alone Forms: My [facility] Prescriptions Prescriptions: No Action atorvastatin 10 mg tablet 10 mg PO QPM RF: 0 colesevelam 625 mg tablet 625 mg PO TID RF: 0 gabapentin 300 mg capsule 300 mg PO QID RF: 0 olmesartan 20 mg tablet 20 mg PO QPM RF: 0 bupropion HCl 150 mg tablet extended release 24 hr 150 mg PO QPM RF: 0 Tremfya 100 mg/mL Auto-Injector 100 mg SUBCUT .Q8WK RF: 0 hydrocodone-acetaminophen 5-325 mg Tablet 1 tab PO UD PRN (Reason: Pain) RF: 0 aspirin 81 mg Tablet,Delayed Release (Dr/Ec) 81 mg PO DAILY RF: 0 ondansetron 4 mg tablet,disintegrating 4 mg PO Q6H PRN (Reason: nausea and vomiting) Qty: 14 RF: 0 Saccharomyces boulardii [Florastor] 250 mg capsule 250 mg PO BID Qty: 20 RF: 0 Referrals Referrals: Mick Downey [Primary Care Provider] -
[2021-12-28 21:26] LABS: Alanine Aminotransferase 12 U/L (7-52); Albumin Globulin Ratio 1.5 (0.9-2); Albumin Level 4.5 gm/dl (3.4-5.0); Alkaline Phosphatase 103 U/L (34-104); Anion Gap 9 (3-11); Aspartate Aminotransferase 13 U/L (13-39); BUN Creatinine Ratio 19.5 (10-20); Bilirubin,Total 0.6 mg/dl (0.2-1.0); Blood Urea Nitrogen 15 mg/dl (6-23); Calcium 9.7 mg/dl (8.5-10.1); Carbon Dioxide 24 mmol/L (21-32); Chloride 104 mmol/L (98-107); Est GFR (African American) 90.7 ml/min; Est GFR (Non-African American) 78.2 ml/min; Globulin 3.1 gm/dl (2.5-4.0); Glucose 101 mg/dl (70-99(Fasting)); Lipase 36 U/L (11-82); Potassium 3.8 mmol/L (3.5-5.1); Sodium 137 mmol/L (136-145); Total Protein 7.6 gm/dl (6.0-8.3)
[2021-12-28] MEDS ORDERED: OPTIRAY 320 125ml IV ONE (22:52)
[2021-12-28] MEDS ORDERED: OPTIRAY 320 100ml IV ONE (22:54)
[2021-12-28 23:23] LABS: Appearance Urine Clear (Clear); Bilirubin Urine Negative (Negative); Blood Urine Negative (Negative); Color Urine Yellow; Glucose Urine UA Negative (Negative); Ketones Urine Negative (Negative); Leukocyte Esterase Urine Negative (Negative); Nitrite Urine Negative (Negative); Protein Urine Negative (Negative); Specific Gravity Urine 1.018 (1.000-1.030); Urobilinogen Urine Negative (Negative); pH Urine 5.5 (4.5-7.5)
[2021-12-28] MEDS ORDERED: PIPERACILLIN/TAZOBACTAM 4.5 GM/120 ML BAG IV ONE (23:24)
[2021-12-28] MEDS ORDERED: PIPERACILL/TAZOBAC CONSULT ACTIVE PRN (23:24)
[2021-12-29] MEDS ORDERED: ZOLPIDEM TARTRATE 5 MG TAB PO STA (00:22)
[2021-12-29] MEDS ORDERED: HYDROmorphone INJ 0.5 MG/0.5 ML SYR IV STA (01:04)
[2021-12-29] MEDS ORDERED: ONDANSETRON INJ 2 MG/ML 2 ML VIAL IV PRN (01:27)
[2021-12-29] MEDS ORDERED: ACETAMINOPHEN 325 MG TAB PO PRN (01:27)
[2021-12-29] MEDS ORDERED: HYDROmorphone INJ 0.5 MG/0.5 ML SYR IV PRN (01:27)
[2021-12-29] MEDS: D5W AND 1/2NSS 1,000 ML IV SCH ×3 (02:57→16:43)
[2021-12-29] MEDS: PIPERACILLIN/TAZOBACTAM 3.375 GM in DEXTROSE 5% 100 ML IV SCH ×3 (03:59→19:36)
--- NOTE | 2021-12-29 07:42 | History and Physical Report ---
DATE OF ADMISSION: 12/29/2021. CHIEF COMPLAINT: Abdominal pain. HISTORY OF PRESENT ILLNESS: This is a 71-year-old female with past medical history significant for history of calculus of kidney, psoriasis, psoriatic arthropathy, depression, hypertension, hyperlipidemia, who presents with abdominal pain. The patient was seen in the ER on 12/21/2021. At that time, CAT scan showed diverticulitis, was discharged with Augmentin. The patient finished the course of Augmentin yesterday, but pain is getting worse. That is the reason she came here and CAT preliminary report is showing worsening diverticulitis, so we were called for admission. The patient denies any fever or chills, had a normal bowel movement today. Denies any blood in stool or black stools. Normal bladder movements. Denies any nausea. She is only taking soups for the last about one to two weeks. Denies any chest pain, no shortness of breath. No headache, no blurred visions, no earache, no runny nose, no sore throat. Ambulating okay. Currently, resting comfortably and hemodynamically stable. ALLERGIES: CODEINE. PAST MEDICAL HISTORY: As mentioned above. PAST SURGICAL HISTORY: Laparoscopic exploration of total hysterectomy. MEDICATIONS: The patient is on aspirin 81 mg p.o. daily, atorvastatin 10 mg p.o. daily, bupropion 150 mg p.o. p.m., colesevelam 625 mg p.o. t.i.d., gabapentin 300 mg p.o. q.i.d., hydrocodone/acetaminophen 1 tablet p.r.n., olmesartan 20 mg p.o. q.p.m., Zofran 4 mg p.o. q. 6 hours p.r.n., Florastor 250 mg p.o. b.i.d., Tremfya 100 mg subcutaneous q. 8 weeks. FAMILY HISTORY: Significant for mother has psoriatic arthritis, father is semi- paralyzed secondary to accident. SOCIAL HISTORY: . Quit smoking in 1995, smoked half pack a day for 4 years. No alcohol use. No drug use. REVIEW OF SYSTEMS: As per HPI. Rest of review of systems is negative. PHYSICAL EXAMINATION: GENERAL: The patient is of moderate build, not in acute distress. VITAL SIGNS: Temperature 37.4, pulse 76, respiratory rate 16, blood pressure 131/75, oxygen 99% on room air. HEENT: Pupils equal, round and reactive to light. Oral mucosa moist and dry. NECK: No JVD, no neck masses. CARDIOVASCULAR: S1 and S2 heard. Regular rate and rhythm. No murmur, no gallop. RESPIRATORY SYSTEM: Normal AP diameter. No accessory muscle use. No wheezing, no crackles. ABDOMEN: Soft, bowel sounds present. Left lower quadrant tenderness present. Guarding present. No rigidity, no distention. CENTRAL NERVOUS SYSTEM: Cranial nerves II through XII are grossly intact, nonfocal. EXTREMITIES: No edema, no erythema. LABORATORY DATA: WBC 11.1, hemoglobin 14.2, hematocrit 41, platelets 310. Sodium 137, potassium 3.8, chloride 104, bicarbonate 24, BUN 15, creatinine 0.7, serum glucose 101, calcium 9.7, total bilirubin 0.6, AST 33, ALT 12, alkaline phosphatase 103. Lipase 36. Urinalysis negative. SARS-CoV-2 rapid test negative. IMAGING DATA: CT of abdomen and pelvis preliminary report worsening diverticulitis. ASSESSMENT AND PLAN: This 71-year-old female presents with diverticulitis. 1. Diverticulitis: Failed outpatient treatment with Augmentin. Worsening diverticulitis on preliminary report of CAT scan. Received IV Zosyn in the ER, which will be continued. Continue with IV D5 half normal saline 125 mL per hour, n.p.o. except meds, IV Dilaudid p.r.n. Closely monitor in medical floor. Surgical consult in a.m. 2. History of hyperlipidemia: Continue statin and colesevelam. 3. History of hypertension: Continue olmesartan. 4. Depression: On bupropion. 5. History of psoriatic arthritis: On Tremfya subcutaneous every 8 weeks. 6. Deep venous thrombosis prophylaxis: Lovenox, sequential compression devices. DISPOSITION: Monitor in medical floor. PT/OT prior to discharge. Social service to help with discharge planning. Level 1 full code. Job ID: [id number] [facility]
[2021-12-29 07:44] LABS: Basophils # (auto) 0.01 K/uL (0-0.2); Basophils % (auto) 0.1 %; Eosinophils # (auto) 0.03 K/uL (0-0.5); Eosinophils % (auto) 0.4 %; Hematocrit (blood only) 34.6 % (37-47); Hemoglobin 11.7 g/dL (12.0-16.0); Immature Granulocytes # (auto) 0.01 K/uL (0.00-0.02); Immature Granulocytes % (auto) 0.1 %; Lymphocytes # (auto) 0.97 K/uL (1.2-3.4); Lymphocytes % (auto) 12.7 %; Mean Corpuscular Hemoglobin 31.5 pg (25-34); Mean Corpuscular Hgb Conc 33.8 g/dL (32-36); Mean Corpuscular Volume 93.3 fL (80-100); Mean Platelet Volume 10.2 fL (7.4-10.4); Monocytes # (auto) 0.64 K/uL (0.11-0.59); Monocytes % (auto) 8.4 %; Neutrophils # (auto) 5.95 K/uL (1.4-6.5); Neutrophils % (auto) 78.3 %; Platelet Count 233 K/uL (130-400); RDW Coefficient of Variation 13.2 % (11.5-14.5); Red Blood Count 3.71 M/uL (4.2-5.4); White Blood Count 7.61 K/uL (4.8-10.8)
--- NOTE | 2021-12-29 07:44 | CT Scan Report ---
CT abd pelvis IV con only CLINICAL HISTORY: llq abd pain . Previous history of diverticulitis COMPARISON STUDY: 12/20/2021 CT DOSE: 416.20 mGy.cm TECHNIQUE: Standard CT of the Abdomen and Pelvis was performed with IV contrast. A dose lowering christina hnique was utilized adhering to the principles of ALARA. Contrast Volume: Optiray 320, 93 ml. The patient did not receive oral contrast. FINDINGS: Lung base: The lung bases are clear. Abdominal cavity: There is no evidence for abdominal mass, adenopathy or ascites. Liver: There is homogeneous attenuation of the liver parenchyma. There is no evidence for enhancing m ass lesion. Spleen: There is homogeneous attenuation of the splenic parenchyma. There is no enhancing mass lesion . Pancreas: There is homogeneous attenuation of the pancreatic parenchyma. There is no evidence for mas s lesion or peripancreatic fluid collection. Gall Bladder: Surgical clips are again seen. Adrenal glands: The adrenal glands are normal in size and attenuation. There is no evidence for enhan cing mass lesion. Kidneys: There is homogeneous attenuation of the renal parenchyma bilaterally. There is no evidence f or renal calculus or hydronephrosis. There is no evidence for enhancing mass. Bowel: Compared to the previous examination, there has been interval worsening of sigmoid diverticuli tis. Increased perisigmoidal inflammatory changes and fluid are present along with thickening of the small bowel wall. There is a more localized fluid collection seen within the bowel wall as noted on i mage [id number] which may represent early abscess formation. There is again no evidence for perforation or f ree air. There has been interval development of mild pelvic ascites as well. Additionally, there has been interval development of moderate fecal stasis throughout the remainder t he colon. No small bowel dilatation or obstruction is seen. There is a small hiatal hernia. Bladder: The bladder is within normal limits with no evidence for focal mass, calculus or diverticulu m. : There is no evidence for pelvic mass or adenopathy. Vasculature: There is no evidence for aneurysmal dilatation of the abdominal aorta. Osseous structures: There is no acute osseous pathology. Degenerative changes are again seen within t he spine. IMPRESSION: 1. Worsening of sigmoid diverticulitis with increased perisigmoidal inflammatory changes, wall thicke germaine and fluid within the pelvis. 2. There is also suspicion of localized fluid within the wall of the sigmoid colon suggesting possibl e early abscess. 3. There is no evidence for perforation or free air. 4. Interval development of moderate fecal stasis. ACT 112: Negative or not required by law. Electronically signed by: Adiel Yi M.D. 12/29/2021 7:42 AM
[2021-12-29 08:20] LABS: BUN Creatinine Ratio 18.4 (10-20); Calcium 8.2 mg/dl (8.5-10.1); Creatinine Clr Calc Pharmacy 66.8 ml/min; Est GFR (African American) 92.1 ml/min; Est GFR (Non-African American) 79.5 ml/min; Magnesium 1.8 mg/dl (1.7-2.4); Potassium 3.7 mmol/L (3.5-5.1)
[2021-12-29] MEDS: HYDROCODONE/ACETAMOPHEN 5/325MG TAB PO PRN ×2 (10:46→16:41)
[2021-12-29] MEDS: SACCHAROMYCES BOULARDII 250 MG CAP PO SCH ×2 (10:46→20:30)
[2021-12-29] MEDS: ASPIRIN 81 MG ECTAB PO SCH (10:46)
[2021-12-29] MEDS: GABAPENTIN 300 MG CAP PO SCH ×4 (10:46→20:29)
[2021-12-29] MEDS: ENOXAPARIN INJ 40 MG/0.4 ML SYR SQ SCH (10:48)
--- NOTE | 2021-12-29 16:13 | Hospitalist Progress Note ---
Date of Service December 29, 2021 and December 30, 2021 Assessment & Plan (1) Acute diverticulitis: Plan: Was in the ER on of this month with acute diverticulitis and was sent home on oral Augmentin Condition did not improve and the patient is back with increasing pain and nausea CT scan of the abdomen and pelvis showed:Acute Sigmoid diverticulitis with possible early abscess 1. Worsening of sigmoid diverticulitis with increased perisigmoidal inflammatory changes, wall thickening and fluid within the pelvis. 2. There is also suspicion of localized fluid within the wall of the sigmoid colon suggesting possible early abscess. 3. There is no evidence for perforation or free air. 4. Interval development of moderate fecal stasis. Has been on intravenous Zosyn General surgery consulted Clinically little better with decreasing abdominal symptoms We will continue current management and keep her n.p.o. (2) Left lower quadrant abdominal pain: Plan: Secondary to diverticulitis (3) HTN (hypertension): Plan: Blood pressure seems to be in the lower side of normal (4) Anxiety and depression: Plan: Continue home medications (5) Hypercholesteremia: Plan: Continue current medication DVT prophylaxis Subcu Lovenox Admission and Anticipated Discharge Date Admission Date: December 29, 2021 Subjective 12/29/2021 The patient was seen and examined in medical telemetry unit She complains to of left lower quadrant pain and the pain is worse with movement and oral intake of any fluid and/or food No fever and or chills 12/30/2021 The patient was seen and examined in medical floor She has been feeling a little better with decreasing abdominal pain and/or distention Bowel has not moved Review of Systems Review of Systems: All systems reviewed and are unremarkable except as noted below Gastrointestinal: Minimal abdominal distention and discomfort mainly in the left lower quadrant Physical Exam Physical Exam: Lying in bed comfortably Constitutional: well developed, well nourished, + ill appearing and + obese Eyes: PERRL, conjunctivae normal, anicteric sclerae ENMT: external ear and nose normal, oropharynx normal Neck: trachea midline, no thyromegaly Respiratory: no respiratory distress Auscultation: lungs clear to auscultation bilaterally Cardiovascular: Rate/Rhythm: regular rate and regular rhythm Heart Sounds: normal S1 and normal S2; no murmur Extremities: no edema Gastrointestinal (Abdomen): Inspection/Auscultation: + abdomen distended (Minimally distended) and normal bowel sounds (Sluggish) Percussion/Palpation: + abdomen tender (Left lower quadrant with minimal guarding and rigidity.) and abdomen soft Musculoskeletal: No acute arthritis in any joint Neurologic: Alert, awake and oriented x3. No focal sensory and motor deficit appreciated Results & Data Results & Data ([facility]) Vital Signs (Past 12 Hours) Vital Signs Temp Pulse Pulse Resp BP BP Pulse Ox 12/29/21 15:48 36.6 C 73 18 102/57 L 99 12/29/21 11:43 36.7 C 75 18 110/62 98 12/29/21 07:45 36.8 C 78 18 126/78 126/76 98 12/29/21 05:44 36.4 C L 73 18 107/70 Laboratory Results Short CBC 12/28/21 12/29/21 Range/Units 20:56 06:58 WBC 11.13 H 7.61 (4.8-10.8) K/uL Hgb 14.2 11.7 L (12.0-16.0) g/dL Hct 41.0 34.6 L (37-47) % Plt Count 310 233 (130-400) K/uL BMP 12/28/21 12/29/21 20:56 06:58 Sodium 137 137 Potassium 3.8 3.7 Chloride 104 105 Carbon Dioxide 24 27 BUN 15 14 Creatinine 0.77 0.76 Glucose 101 H 149 H Calcium 9.7 8.2 L Liver Function 12/28/21 Range/Units 20:56 Total Bilirubin 0.6 (0.2-1.0) mg/dl AST 13 (13-39) U/L ALT 12 (7-52) U/L Alkaline Phosphatase 103 (34-104) U/L Albumin 4.5 (3.4-5.0) gm/dl Urine 12/28/21 Range/Units 22:50 Urine Color Yellow Urine Appearance Clear (Clear) Urine pH 5.5 (4.5-7.5) Ur Specific [place] 1.018 (1.000-1.030) Urine Protein Negative (Negative) Urine Glucose (UA) Negative (Negative) Short CBC 12/30/21 Range/Units 05:53 WBC 6.76 (4.8-10.8) K/uL Hgb 11.5 L (12.0-16.0) g/dL Hct 35.1 L (37-47) % Plt Count 222 (130-400) K/uL BMP 12/30/21 05:53 Sodium 136 Potassium 3.5 Chloride 105 Carbon Dioxide 26 BUN 7 Creatinine 0.69 Glucose 131 H Calcium 8.2 L Medications Administered Current Inpatient Medications Acetaminophen (Acetaminophen 325 Mg Tab) 650 mg PO Q4H PRN PRN Reason: pain/fever Stop: 01/28/22 01:26 Hydrocodone Bitart/Acetaminophen (Hydrocodone/Acetamophen 5/325mg Tab) 1 tab PO Q6H PRN PRN Reason: Pain Stop: 01/12/22 01:26 Last Admin: 12/29/21 10:46 Dose: 1 tab Documented by: Aspirin (Aspirin 81 Mg Ectab) 81 mg PO DAILY NIDHI Stop: 01/28/22 08:59 Last Admin: 12/29/21 10:46 Dose: 81 mg Documented by: Atorvastatin Calcium (Atorvastatin 10 Mg Tab) 10 mg PO QPM NIDHI Stop: 01/28/22 20:59 Bupropion HCl (Bupropion Xl 150 Mg Tabcr) 150 mg PO QPM NIDHI Stop: 01/28/22 20:59 Enoxaparin Sodium (Enoxaparin Inj 40 Mg/0.4 Ml Syr) 40 mg SQ Q24H NIDHI Stop: 01/28/22 08:59 Last Admin: 12/29/21 10:48 Dose: Not Given Documented by: Gabapentin (Gabapentin 300 Mg Cap) 300 mg PO QID NIDHI Stop: 01/28/22 08:59 Last Admin: 12/29/21 12:05 Dose: 300 mg Documented by: Hydromorphone HCl (Hydromorphone Inj 0.5 Mg/0.5 Ml Syr) 0.5 mg IV Q3H PRN PRN Reason: Pain Stop: 01/12/22 01:26 Last Admin: 12/29/21 07:24 Dose: 0.5 mg Documented by: Dextrose/Sodium Chloride (D5w And 1/2nss) 1,000 mls @ 125 mls/hr IV .Q8H NIDHI Stop: 01/28/22 01:26 Last Admin: 12/29/21 09:43 Dose: 125 mls/hr Documented by: Piperacillin Sod/Tazobactam (Sod 3.375 gm/ Dextrose) 115 mls @ 28.75 mls/hr IV Q8H NIDHI; Protocol Stop: 01/08/22 03:59 Last Admin: 12/29/21 12:05 Dose: 28.8 mls/hr Documented by: Miscellaneous (Colesevelam 625 Mg - Order Awaiting Action) 1 ea N/A QS NIDHI Stop: 01/28/22 07:59 Last Admin: 12/29/21 07:31 Dose: Not Given Documented by: Miscellaneous Information (Piperacill/Tazobac Consult Active) 1 ea N/A UD PRN PRN Reason: Consult Stop: 01/27/22 23:23 Olmesartan (Olmesartan Medoxomil 20 Mg Tab) 20 mg PO QPM NIDHI Stop: 01/28/22 20:59 Ondansetron HCl (Ondansetron Inj 2 Mg/Ml 2 Ml Vial) 4 mg IV Q6H PRN PRN Reason: Nausea Stop: 01/28/22 01:26 Saccharomyces Boulardii (Saccharomyces Boulardii 250 Mg Cap) 250 mg PO BID NIDHI Stop: 01/28/22 08:59 Last Admin: 12/29/21 10:46 Dose: 250 mg Documented by:
[2021-12-29] MEDS: ATORVASTATIN 10 MG TAB PO SCH (20:29)
[2021-12-29] MEDS: OLMESARTAN MEDOXOMIL 20 MG TAB PO SCH (20:30)
[2021-12-29] MEDS: buPROPion XL 150 MG TABCR PO SCH (20:30)
[2021-12-30] MEDS: D5W AND 1/2NSS 1,000 ML IV SCH ×3 (00:53→17:22)
[2021-12-30] MEDS: PIPERACILLIN/TAZOBACTAM 3.375 GM in DEXTROSE 5% 100 ML IV SCH ×3 (04:09→20:30)
[2021-12-30 06:40] LABS: Basophils # (auto) 0.01 K/uL (0-0.2); Basophils % (auto) 0.1 %; Eosinophils # (auto) 0.02 K/uL (0-0.5); Eosinophils % (auto) 0.3 %; Hematocrit (blood only) 35.1 % (37-47); Hemoglobin 11.5 g/dL (12.0-16.0); Immature Granulocytes # (auto) 0.01 K/uL (0.00-0.02); Immature Granulocytes % (auto) 0.1 %; Lymphocytes % (auto) 16.3 %; Mean Corpuscular Hemoglobin 30.7 pg (25-34); Mean Corpuscular Hgb Conc 32.8 g/dL (32-36); Mean Corpuscular Volume 93.6 fL (80-100); Mean Platelet Volume 10.8 fL (7.4-10.4); Monocytes # (auto) 0.69 K/uL (0.11-0.59); Monocytes % (auto) 10.2 %; Neutrophils # (auto) 4.93 K/uL (1.4-6.5); Platelet Count 222 K/uL (130-400); RDW Coefficient of Variation 13.1 % (11.5-14.5); RDW Standard Deviation 44.8 fL (36.4-46.3); Red Blood Count 3.75 M/uL (4.2-5.4); White Blood Count 6.76 K/uL (4.8-10.8)
[2021-12-30 06:57] LABS: BUN Creatinine Ratio 10.1 (10-20); Calcium 8.2 mg/dl (8.5-10.1); Creatinine Clr Calc Pharmacy 73.6 ml/min; Est GFR (African American) 102.2 ml/min; Est GFR (Non-African American) 88.2 ml/min; Potassium 3.5 mmol/L (3.5-5.1)
[2021-12-30] MEDS: SACCHAROMYCES BOULARDII 250 MG CAP PO SCH ×2 (08:33→20:32)
[2021-12-30] MEDS: ASPIRIN 81 MG ECTAB PO SCH (08:33)
[2021-12-30] MEDS: ENOXAPARIN INJ 40 MG/0.4 ML SYR SQ SCH (08:34)
[2021-12-30] MEDS: GABAPENTIN 300 MG CAP PO SCH ×4 (10:24→20:31)
[2021-12-30] MEDS: ATORVASTATIN 10 MG TAB PO SCH (20:31)
[2021-12-30] MEDS: OLMESARTAN MEDOXOMIL 20 MG TAB PO SCH (20:32)
[2021-12-30] MEDS: buPROPion XL 150 MG TABCR PO SCH (20:32)
[2021-12-31] MEDS: D5W AND 1/2NSS 1,000 ML IV SCH ×3 (02:20→17:12)
[2021-12-31] MEDS: PIPERACILLIN/TAZOBACTAM 3.375 GM in DEXTROSE 5% 100 ML IV SCH ×3 (04:09→20:21)
[2021-12-31 06:28] LABS: Basophils # (auto) 0.01 K/uL (0-0.2); Basophils % (auto) 0.2 %; Eosinophils # (auto) 0.06 K/uL (0-0.5); Eosinophils % (auto) 1.3 %; Hemoglobin 11.1 g/dL (12.0-16.0); Immature Granulocytes # (auto) 0.01 K/uL (0.00-0.02); Immature Granulocytes % (auto) 0.2 %; Lymphocytes # (auto) 1.16 K/uL (1.2-3.4); Lymphocytes % (auto) 25.7 %; Mean Corpuscular Hgb Conc 33.6 g/dL (32-36); Mean Corpuscular Volume 92.2 fL (80-100); Mean Platelet Volume 10.6 fL (7.4-10.4); Monocytes % (auto) 11.1 %; Neutrophils # (auto) 2.78 K/uL (1.4-6.5); Neutrophils % (auto) 61.5 %; Platelet Count 205 K/uL (130-400); RDW Coefficient of Variation 12.8 % (11.5-14.5); RDW Standard Deviation 43.6 fL (36.4-46.3); Red Blood Count 3.58 M/uL (4.2-5.4); White Blood Count 4.52 K/uL (4.8-10.8)
[2021-12-31 06:48] LABS: BUN Creatinine Ratio 8.8 (10-20); Calcium 8.5 mg/dl (8.5-10.1); Creatinine Clr Calc Pharmacy 89.1 ml/min; Est GFR (African American) 108.9 ml/min; Est GFR (Non-African American) 93.9 ml/min; Potassium 3.2 mmol/L (3.5-5.1)
[2021-12-31] MEDS: ASPIRIN 81 MG ECTAB PO SCH (08:29)
[2021-12-31] MEDS: GABAPENTIN 300 MG CAP PO SCH ×4 (08:30→20:17)
[2021-12-31] MEDS: SACCHAROMYCES BOULARDII 250 MG CAP PO SCH ×2 (08:30→20:17)
[2021-12-31] MEDS: ENOXAPARIN INJ 40 MG/0.4 ML SYR SQ SCH (08:30)
[2021-12-31] MEDS ORDERED: POTASSIUM CHLORIDE CRTAB 20 MEQ TABCR PO STA (09:30)
--- NOTE | 2021-12-31 11:49 | Surgery Consultation ---
Date of Consultation December 31, 2021 Assessment & Plan (1) Diverticulitis: -Agree with abx -begin clears -making progress Present on Admission?: Yes History of Present Illness Attending Physician: Diane Meyers MD History of Present Illness This is a 71-year-old female with past medical history significant for history of calculus of kidney, psoriasis, psoriatic arthropathy, depression, hypertension, hyperlipidemia, who presented with abdominal pain and known diverticulitis who failed outpatient management. A previous CT scan showed diverticulitis and was discharged with Augmentin. The patient finished the course of Augmentin but had worsening pain. She denied fever or chills, had a normal bowel movements. She has no chest pain, no shortness of breath, no headache, no blurred visions, no earache, no runny nose, no sore throat.A repeat CT scan shows worsening diverticulitis with possible small abscess. Allergies Allergy/AdvReac Type Severity Reaction Status Date / Time codeine AdvReac Intermediate HIT OR Verified 12/28/21 21:37 MISS, NAUSEA Home Medications Medication Instructions Recorded Confirmed Type atorvastatin 10 mg tablet 10 mg PO QPM 02/28/21 12/28/21 History bupropion HCl 150 mg 24 hr tablet, 150 mg PO QPM 02/28/21 12/28/21 History extended release colesevelam 625 mg tablet 625 mg PO TID 02/28/21 12/28/21 History gabapentin 300 mg capsule 300 mg PO QID 02/28/21 12/28/21 History olmesartan 20 mg tablet 20 mg PO QPM 02/28/21 12/28/21 History aspirin 81 mg tablet,delayed 81 mg PO DAILY 11/02/21 12/28/21 History release guselkumab 100 mg/mL subcutaneous 100 mg SUBCUT .Q8WK 11/02/21 12/28/21 History auto-injector (Tremfya) hydrocodone 5 mg-acetaminophen 325 1 tab PO UD PRN 11/02/21 12/28/21 History mg tablet Saccharomyces boulardii 250 mg 250 mg PO BID #20 cap 12/21/21 12/28/21 Rx capsule (Florastor) ondansetron 4 mg disintegrating 4 mg PO Q6H PRN #14 tab 12/21/21 12/28/21 Rx tablet Patient History Medical History (Updated 12/29/21 @ 16:17 by Diane Meyers MD) Abnormal gynecological examination HX OF TOTAL OF 4 OVARIES AND 2 UTERUS...HX NUMEROUS VARIOUS OVARIAN BENIGN TUMORS Acid reflux Anxiety and depression Drug interaction PT REPORTS AFTER RECEIVING BOTH COVID 19 VACCINATIONS BECAME DEATHLY ILL WITH NAUSEA AND BODY ACHES. PT DISCUSSED WITH RHEUMATOLOGY AND TOLD WAS BELEIVED TO BE DUE TO REACTION BETWEEN COSENTYX AND THE VACCINE. HTN (hypertension) Hypercholesteremia Lyme disease Psoriasis Psoriatic arthritis Thyroid mass BENIGN MASS RIGHT THYROID Surgical History History of cataract surgery History of colonoscopy History of endoscopy S/P RITESH-BSO HX Status post appendectomy HX Status post cholecystectomy HX Family History Mother Family history of diabetes mellitus Social History Smoking Status: Never smoker Second Hand Exposure: No; Hx Alcohol Use: No Hx Substance Use: No Preferred Language: Sinhala Communication Ability: Effective Waredresser Required: No Beliefs That Will Affect Care: None marital status: Current Living Situation: Spouse Current Living Situation Comment: LIVE ON FAMILY FARM How many Children do You have: 1 Other Information That Helps Us Care for You: No Feels Safe at Home: Yes Safety Concerns: Feels Safe At This Time Assistive Devices: Glasses and Walker Review of Systems Constitutional: no fever, no chills and no anorexia Ear, Nose, Mouth, Throat: no problem reported Respiratory: no cough and no dyspnea Cardiovascular: no chest pain Gastrointestinal: + abdominal pain; no nausea, no vomiting and no change in bowel habits Genitourinary: no dysuria and no urinary hesitancy Musculoskeletal: no back pain, no neck pain and no joint pain Integumentary: no problem reported Neurologic: no localized weakness and no generalized weakness Psychiatric: no behavioral changes Hematologic / Lymphatic: no easy bleeding and no easy bruising Physical Exam Constitutional: WD/WN, vitals as above Eyes: PERRL, conjunctivae normal, anicteric sclerae ENMT: external ear and nose normal, oropharynx normal Neck: trachea midline Respiratory: normal respiratory effort, lungs clear to auscultation Cardiovascular: RRR, no murmur, no edema Gastrointestinal (Abdomen): Inspection/Auscultation: abdomen normal to inspection and normal bowel sounds; abdomen not distended and no abdominal surgical incision Percussion/Palpation: + abdomen tender (mild) and abdomen soft Musculoskeletal: Head/Neck/Chest: normocephalic and head atraumatic Skin: no rashes, warm and dry Psychiatric: A+Ox3, euthymic affect Results & Data ([facility]) Vital Signs (Past 12 Hours) Vital Signs Temp Pulse Resp BP Pulse Ox 12/31/21 07:23 36.8 C 74 18 133/[address] abd pelvis IV con only CLINICAL HISTORY: llq abd pain . Previous history of diverticulitis COMPARISON STUDY: 12/20/2021 CT DOSE: 416.20 mGy.cm TECHNIQUE: Standard CT of the Abdomen and Pelvis was performed with IV contrast. A dose lowering technique was utilized adhering to the principles of ALARA. Contrast Volume: Optiray 320, 93 ml. The patient did not receive oral contrast. FINDINGS: Lung base: The lung bases are clear. Abdominal cavity: There is no evidence for abdominal mass, adenopathy or ascites. Liver: There is homogeneous attenuation of the liver parenchyma. There is no evidence for enhancing mass lesion. Spleen: There is homogeneous attenuation of the splenic parenchyma. There is no enhancing mass lesion. Pancreas: There is homogeneous attenuation of the pancreatic parenchyma. There is no evidence for mass lesion or peripancreatic fluid collection. Gall Bladder: Surgical clips are again seen. Adrenal glands: The adrenal glands are normal in size and attenuation. There is no evidence for enhancing mass lesion. Kidneys: There is homogeneous attenuation of the renal parenchyma bilaterally. There is no evidence for renal calculus or hydronephrosis. There is no evidence for enhancing mass. Bowel: Compared to the previous examination, there has been interval worsening of sigmoid diverticulitis. Increased perisigmoidal inflammatory changes and fluid are present along with thickening of the small bowel wall. There is a more localized fluid collection seen within the bowel wall as noted on image 326 which may represent early abscess formation. There is again no evidence for perforation or free air. There has been interval development of mild pelvic ascites as well. Additionally, there has been interval development of moderate fecal stasis throughout the remainder the colon. No small bowel dilatation or obstruction is seen. There is a small hiatal hernia. Bladder: The bladder is within normal limits with no evidence for focal mass, calculus or diverticulum. : There is no evidence for pelvic mass or adenopathy. Vasculature: There is no evidence for aneurysmal dilatation of the abdominal aorta. Osseous structures: There is no acute osseous pathology. Degenerative changes are again seen within the spine. IMPRESSION: 1. Worsening of sigmoid diverticulitis with increased perisigmoidal inflammatory changes, wall thickening and fluid within the pelvis. 2. There is also suspicion of localized fluid within the wall of the sigmoid colon suggesting possible early abscess. 3. There is no evidence for perforation or free air. 4. Interval development of moderate fecal stasis.
--- NOTE | 2021-12-31 14:36 | Hospitalist Progress Note ---
Date of Service December 31, 2021 Assessment & Plan (1) Acute diverticulitis: Plan: Was in the ER on of this month with acute diverticulitis and was sent home on oral Augmentin Condition did not improve and the patient is back with increasing pain and nausea CT scan of the abdomen and pelvis showed:Acute Sigmoid diverticulitis with possible early abscess 1. Worsening of sigmoid diverticulitis with increased perisigmoidal inflammatory changes, wall thickening and fluid within the pelvis. 2. There is also suspicion of localized fluid within the wall of the sigmoid colon suggesting possible early abscess. 3. There is no evidence for perforation or free air. 4. Interval development of moderate fecal stasis. Has been on intravenous Zosyn General surgery consulted Clinically little better with decreasing abdominal symptoms Clinically much better today without any rebound tenderness and she has been passing gas but no bowel movement Will start clears orally and continue IV antibiotic Increase activity (2) Left lower quadrant abdominal pain: Plan: Secondary to diverticulitis (3) HTN (hypertension): Plan: Blood pressure seems to be in the lower side of normal (4) Anxiety and depression: Plan: Continue home medications (5) Hypercholesteremia: Plan: Continue current medication DVT prophylaxis Subcu Lovenox Admission and Anticipated Discharge Date Admission Date: December 29, 2021 Subjective 12/29/2021 The patient was seen and examined in medical telemetry unit She complains to of left lower quadrant pain and the pain is worse with movement and oral intake of any fluid and/or food No fever and or chills 12/30/2021 The patient was seen and examined in medical floor She has been feeling a little better with decreasing abdominal pain and/or distention Bowel has not moved 12/31/2021 The patient was seen and examined in medical floor She has been feeling a lot better but has not moved her bowel Abdominal pain is improved and denies any nausea no vomiting No fever and no chills Review of Systems Review of Systems: All systems reviewed and are unremarkable except as noted below Gastrointestinal: Minimal abdominal distention and discomfort mainly in the left lower quadrant Physical Exam Physical Exam: Lying in bed comfortably Constitutional: well developed, well nourished, + ill appearing and + obese Eyes: PERRL, conjunctivae normal, anicteric sclerae ENMT: external ear and nose normal, oropharynx normal Neck: trachea midline, no thyromegaly Respiratory: no respiratory distress Auscultation: lungs clear to auscultation bilaterally Cardiovascular: Rate/Rhythm: regular rate and regular rhythm Heart Sounds: normal S1 and normal S2; no murmur Extremities: no edema Gastrointestinal (Abdomen): Inspection/Auscultation: + abdomen distended (Minimally distended) and normal bowel sounds (Sluggish) P ercussion/Palpation: + abdomen tender (No guarding and no rigidity) and abdomen soft Musculoskeletal: No acute arthritis in any joint Neurologic: Alert, awake and oriented x3. No focal sensory and motor deficit appreciated Results & Data Results & Data ([facility]) Vital Signs (Past 12 Hours) Vital Signs Temp Pulse Resp BP Pulse Ox 12/31/21 07:23 36.8 C 74 18 133/74 96 Laboratory Results Short CBC 12/31/21 Range/Units 06:13 WBC 4.52 L (4.8-10.8) K/uL Hgb 11.1 L (12.0-16.0) g/dL Hct 33.0 L (37-47) % Plt Count 205 (130-400) K/uL BMP 12/31/21 06:13 Sodium 137 Potassium 3.2 L Chloride 108 H Carbon Dioxide 25 BUN 5 L Creatinine 0.57 L Glucose 143 H Calcium 8.5 Medications Administered Current Inpatient Medications Acetaminophen (Acetaminophen 325 Mg Tab) 650 mg PO Q4H PRN PRN Reason: pain/fever Stop: 01/28/22 01:26 Hydrocodone Bitart/Acetaminophen (Hydrocodone/Acetamophen 5/325mg Tab) 1 tab PO Q6H PRN PRN Reason: Pain Stop: 01/12/22 01:26 Last Admin: 12/29/21 16:41 Dose: 1 tab Documented by: Aspirin (Aspirin 81 Mg Ectab) 81 mg PO DAILY [facility] Stop: 01/28/22 08:59 Last Admin: 12/31/21 08:29 Dose: 81 mg Documented by: Atorvastatin Calcium (Atorvastatin 10 Mg Tab) 10 mg PO QPM [facility] Stop: 01/28/22 20:59 Last Admin: 12/30/21 20:31 Dose: 10 mg Documented by: Bupropion HCl (Bupropion Xl 150 Mg Tabcr) 150 mg PO QPM [facility] Stop: 01/28/22 20:59 Last Admin: 12/30/21 20:32 Dose: 150 mg Documented by: Enoxaparin Sodium (Enoxaparin Inj 40 Mg/0.4 Ml Syr) 40 mg SQ Q24H [facility] Stop: 01/28/22 08:59 Last Admin: 12/31/21 08:30 Dose: 40 mg Documented by: Gabapentin (Gabapentin 300 Mg Cap) 300 mg PO QID [facility] Stop: 01/28/22 08:59 Last Admin: 12/31/21 12:23 Dose: 300 mg Documented by: Hydromorphone HCl (Hydromorphone Inj 0.5 Mg/0.5 Ml Syr) 0.5 mg IV Q3H PRN PRN Reason: Pain Stop: 01/12/22 01:26 Last Admin: 12/29/21 07:24 Dose: 0.5 mg Documented by: Dextrose/Sodium Chloride (D5w And 1/2nss) 1,000 mls @ 125 mls/hr IV .Q8H [facility] Stop: 01/28/22 01:26 Last Admin: 12/31/21 11:06 Dose: 125 mls/hr Documented by: Piperacillin Sod/Tazobactam (Sod 3.375 gm/ Dextrose) 115 mls @ 28.75 mls/hr IV Q8H [facility]; Protocol Stop: 01/08/22 03:59 Last Admin: 12/31/21 11:43 Dose: 28.8 mls/hr Documented by: Miscellaneous (Colesevelam 625 Mg - Order Awaiting Action) 1 ea N/A QS [facility] Stop: 01/28/22 07:59 Last Admin: 12/31/21 07:30 Dose: Not Given Documented by: Miscellaneous Information (Piperacill/Tazobac Consult Active) 1 ea N/A UD PRN PRN Reason: Consult Stop: 01/27/22 23:23 Olmesartan (Olmesartan Medoxomil 20 Mg Tab) 20 mg PO QPM [facility] Stop: 01/28/22 20:59 Last Admin: 12/30/21 20:32 Dose: 20 mg Documented by: Ondansetron HCl (Ondansetron Inj 2 Mg/Ml 2 Ml Vial) 4 mg IV Q6H PRN PRN Reason: Nausea Stop: 01/28/22 01:26 Saccharomyces Boulardii (Saccharomyces Boulardii 250 Mg Cap) 250 mg PO BID [facility] Stop: 01/28/22 08:59 Last Admin: 12/31/21 08:30 Dose: 250 mg Documented by:
[2021-12-31] MEDS: ATORVASTATIN 10 MG TAB PO SCH (20:17)
[2021-12-31] MEDS: OLMESARTAN MEDOXOMIL 20 MG TAB PO SCH (20:17)
[2021-12-31] MEDS: buPROPion XL 150 MG TABCR PO SCH (20:18)
[2021-12-31] MEDS: ZOLPIDEM TARTRATE 5 MG TAB PO PRN (22:16)
[2022-01-01] MEDS: PIPERACILLIN/TAZOBACTAM 3.375 GM in DEXTROSE 5% 100 ML IV SCH ×3 (03:52→20:20)
[2022-01-01 06:04] LABS: Basophils # (auto) 0.01 K/uL (0-0.2); Basophils % (auto) 0.3 %; Eosinophils # (auto) 0.07 K/uL (0-0.5); Hematocrit (blood only) 32.5 % (37-47); Hemoglobin 10.9 g/dL (12.0-16.0); Lymphocytes # (auto) 1.32 K/uL (1.2-3.4); Lymphocytes % (auto) 37.7 %; Mean Corpuscular Hemoglobin 30.6 pg (25-34); Mean Corpuscular Hgb Conc 33.5 g/dL (32-36); Mean Corpuscular Volume 91.3 fL (80-100); Monocytes # (auto) 0.29 K/uL (0.11-0.59); Monocytes % (auto) 8.3 %; Neutrophils # (auto) 1.81 K/uL (1.4-6.5); Neutrophils % (auto) 51.7 %; Platelet Count 242 K/uL (130-400); RDW Coefficient of Variation 12.7 % (11.5-14.5); RDW Standard Deviation 42.9 fL (36.4-46.3); Red Blood Count 3.56 M/uL (4.2-5.4)
[2022-01-01 06:28] LABS: BUN Creatinine Ratio 6.3 (10-20); Calcium 8.7 mg/dl (8.5-10.1); Creatinine Clr Calc Pharmacy 80.6 ml/min; Est GFR (African American) 105.3 ml/min; Est GFR (Non-African American) 90.9 ml/min; Potassium 3.3 mmol/L (3.5-5.1)
[2022-01-01] MEDS: ASPIRIN 81 MG ECTAB PO SCH (08:30)
[2022-01-01] MEDS: GABAPENTIN 300 MG CAP PO SCH ×4 (08:30→20:24)
[2022-01-01] MEDS: ENOXAPARIN INJ 40 MG/0.4 ML SYR SQ SCH (08:31)
[2022-01-01] MEDS: SACCHAROMYCES BOULARDII 250 MG CAP PO SCH ×2 (08:31→20:25)
[2022-01-01] MEDS ORDERED: POTASSIUM CHLORIDE CRTAB 20 MEQ TABCR PO STA (09:01)
--- NOTE | 2022-01-01 09:54 | Surgery Progress Note ---
Date of Service January 01, 2022 Assessment & Plan (1) Diverticulitis: Plan: good progress con't IV abx i-2 more days full liquid diet Admission and Anticipated Discharge Date Admission Date: December 29, 2021 Subjective pain improved having BMs AF VSS Review of Systems Constitutional: no fever, no chills and no anorexia Respiratory: no cough and no dyspnea Cardiovascular: no chest pain Gastrointestinal: + abdominal pain (better); no nausea and no vomiting Genitourinary: no dysuria Musculoskeletal: no problem reported Neurologic: no localized weakness and no generalized weakness Physical Exam Constitutional: WD/WN, vitals as above Eyes: PERRL, conjunctivae normal, anicteric sclerae ENMT: external ear and nose normal, oropharynx normal Neck: trachea midline Respiratory: normal respiratory effort, lungs clear to auscultation Cardiovascular: RRR, no murmur, no edema Gastrointestinal (Abdomen): Inspection/Auscultation: abdomen normal to inspection and normal bowel sounds; abdomen not distended Percussion/Palpation: + abdomen tender (mild) and abdomen soft Skin: no rashes, warm and dry Results & Data ([facility]) Vital Signs (Past 12 Hours) Vital Signs Temp Pulse Resp BP Pulse Ox 01/01/22 07:05 36.6 C 67 16 130/77 97 12/31/21 22:21 36.6 C 73 16 138/77 98
[2022-01-01] MEDS: D5W AND 1/2NSS 1,000 ML IV SCH (11:29)
--- NOTE | 2022-01-01 14:43 | Hospitalist Progress Note ---
Date of Service January 01, 2022 Assessment & Plan (1) Acute diverticulitis: Plan: Was in the ER on of this month with acute diverticulitis and was sent home on oral Augmentin Condition did not improve and the patient is back with increasing pain and nausea CT scan of the abdomen and pelvis showed:Acute Sigmoid diverticulitis with possible early abscess 1. Worsening of sigmoid diverticulitis with increased perisigmoidal inflammatory changes, wall thickening and fluid within the pelvis. 2. There is also suspicion of localized fluid within the wall of the sigmoid colon suggesting possible early abscess. 3. There is no evidence for perforation or free air. 4. Interval development of moderate fecal stasis. Has been on intravenous Zosyn General surgery consulted Clinically little better with decreasing abdominal symptoms Clinically much better today without any rebound tenderness and she has been passing gas but no bowel movement Will start clears orally and continue IV antibiotic Clinically much better and diet has been advanced as tolerated Discontinue IV fluid Continue antibiotic for 2 more days intravenously Likely discharge in a day or 2 (2) Left lower quadrant abdominal pain: Plan: Secondary to diverticulitis (3) HTN (hypertension): Plan: Blood pressure seems to be in the lower side of normal (4) Anxiety and depression: Plan: Continue home medications (5) Hypercholesteremia: Plan: Continue current medication DVT prophylaxis Subcu Lovenox Admission and Anticipated Discharge Date Admission Date: December 29, 2021 Subjective 12/29/2021 The patient was seen and examined in medical telemetry unit She complains to of left lower quadrant pain and the pain is worse with movement and oral intake of any fluid and/or food No fever and or chills 12/30/2021 The patient was seen and examined in medical floor She has been feeling a little better with decreasing abdominal pain and/or distention Bowel has not moved 12/31/2021 The patient was seen and examined in medical floor She has been feeling a lot better but has not moved her bowel Abdominal pain is improved and denies any nausea no vomiting No fever and no chills 01/01/2022 The patient was seen and examined in medical floor She has been feeling much better today Abdominal pain is diminished, no nausea ,no vomiting Review of Systems Review of Systems: All systems reviewed and are unremarkable except as noted below Gastrointestinal: Abdominal pain and tenderness almost gone Physical Exam Physical Exam: Lying in bed comfortably Constitutional: well developed, well nourished, + ill appearing and + obese Eyes: PERRL, conjunctivae normal, anicteric sclerae ENMT: external ear and nose normal, oropharynx normal Neck: trachea midline, no thyromegaly Respiratory: no respiratory distress Auscultation: lungs clear to a uscultation bilaterally Cardiovascular: Rate/Rhythm: regular rate and regular rhythm Heart Sounds: normal S1 and normal S2; no murmur Extremities: no edema Gastrointestinal (Abdomen): Inspection/Auscultation: normal bowel sounds (Sluggish); abdomen not distended (Minimally distended) Percussion/Palpation: + abdomen tender (No guarding and no rigidity) and abdomen soft Musculoskeletal: No acute arthritis in any joint Neurologic: Alert, awake and oriented x3 Psychiatric: A+Ox3, euthymic affect Results & Data Results & Data ([facility]) Vital Signs (Past 12 Hours) Vital Signs Temp Pulse Resp BP Pulse Ox 01/01/22 14:30 36.6 C 83 16 119/69 96 01/01/22 14:01 37 C 90 14 101/54 L 95 01/01/22 07:05 36.6 C 67 16 130/77 97 Laboratory Results Short CBC 01/01/22 Range/Units 05:45 WBC 3.50 L (4.8-10.8) K/uL Hgb 10.9 L (12.0-16.0) g/dL Hct 32.5 L (37-47) % Plt Count 242 (130-400) K/uL BMP 01/01/22 05:45 Sodium 139 Potassium 3.3 L Chloride 108 H Carbon Dioxide 24 BUN 4 L Creatinine 0.63 Glucose 128 H Calcium 8.7 Medications Administered Current Inpatient Medications Acetaminophen (Acetaminophen 325 Mg Tab) 650 mg PO Q4H PRN PRN Reason: pain/fever Stop: 01/28/22 01:26 Hydrocodone Bitart/Acetaminophen (Hydrocodone/Acetamophen 5/325mg Tab) 1 tab PO Q6H PRN PRN Reason: Pain Stop: 01/12/22 01:26 Last Admin: 12/29/21 16:41 Dose: 1 tab Documented by: Aspirin (Aspirin 81 Mg Ectab) 81 mg PO DAILY [facility] Stop: 01/28/22 08:59 Last Admin: 01/01/22 08:30 Dose: 81 mg Documented by: Atorvastatin Calcium (Atorvastatin 10 Mg Tab) 10 mg PO QPM [facility] Stop: 01/28/22 20:59 Last Admin: 12/31/21 20:17 Dose: 10 mg Documented by: Bupropion HCl (Bupropion Xl 150 Mg Tabcr) 150 mg PO QPM [facility] Stop: 01/28/22 20:59 Last Admin: 12/31/21 20:18 Dose: 150 mg Documented by: Enoxaparin Sodium (Enoxaparin Inj 40 Mg/0.4 Ml Syr) 40 mg SQ Q24H [facility] Stop: 01/28/22 08:59 Last Admin: 01/01/22 08:31 Dose: 40 mg Documented by: Gabapentin (Gabapentin 300 Mg Cap) 300 mg PO QID [facility] Stop: 01/28/22 08:59 Last Admin: 01/01/22 13:33 Dose: 300 mg Documented by: Hydromorphone HCl (Hydromorphone Inj 0.5 Mg/0.5 Ml Syr) 0.5 mg IV Q3H PRN PRN Reason: Pain Stop: 01/12/22 01:26 Last Admin: 12/29/21 07:24 Dose: 0.5 mg Documented by: Piperacillin Sod/Tazobactam (Sod 3.375 gm/ Dextrose) 115 mls @ 28.75 mls/hr IV Q8H [facility]; Protocol Stop: 01/08/22 03:59 Last Admin: 01/01/22 11:47 Dose: 28.8 mls/hr Documented by: Miscellaneous (Colesevelam 625 Mg - Order Awaiting Action) 1 ea N/A QS [facility] Stop: 01/28/22 07:59 Last Admin: 01/01/22 08:31 Dose: Not Given Documented by: Miscellaneous Information (Piperacill/Tazobac Consult Active) 1 ea N/A UD PRN PRN Reason: Consult Stop: 01/27/22 23:23 Olmesartan (Olmesartan Medoxomil 20 Mg Tab) 20 mg PO QPM [facility] Stop: 01/28/22 20:59 Last Admin: 12/31/21 20:17 Dose: 20 mg Documented by: Ondansetron HCl (Ondansetron Inj 2 Mg/Ml 2 Ml Vial) 4 mg IV Q6H PRN PRN Reason: Nausea Stop: 01/28/22 01:26 Saccharomyces Boulardii (Saccharomyces Boulardii 250 Mg Cap) 250 mg PO BID [facility] Stop: 01/28/22 08:59 Last Admin: 01/01/22 08:31 Dose: 250 mg Documented by: Zolpidem Tartrate (Zolpidem Tartrate 5 Mg Tab) 5 mg PO HS PRN PRN Reason: Sleep Stop: 01/30/22 18:40 Last Admin: 12/31/21 22:16 Dose: 5 mg Documented by:
[2022-01-01] MEDS: OLMESARTAN MEDOXOMIL 20 MG TAB PO SCH (20:24)
[2022-01-01] MEDS: ATORVASTATIN 10 MG TAB PO SCH (20:24)
[2022-01-01] MEDS: buPROPion XL 150 MG TABCR PO SCH (20:25)
[2022-01-01] MEDS: ZOLPIDEM TARTRATE 5 MG TAB PO PRN (22:28)
[2022-01-02] MEDS: PIPERACILLIN/TAZOBACTAM 3.375 GM in DEXTROSE 5% 100 ML IV SCH ×2 (03:46→12:27)
[2022-01-02 06:42] LABS: Basophils # (auto) 0.03 K/uL (0-0.2); Basophils % (auto) 0.9 %; Eosinophils # (auto) 0.13 K/uL (0-0.5); Eosinophils % (auto) 3.7 %; Hematocrit (blood only) 34.2 % (37-47); Hemoglobin 11.5 g/dL (12.0-16.0); Lymphocytes # (auto) 1.68 K/uL (1.2-3.4); Lymphocytes % (auto) 47.9 %; Mean Corpuscular Hemoglobin 30.5 pg (25-34); Mean Corpuscular Hgb Conc 33.6 g/dL (32-36); Mean Corpuscular Volume 90.7 fL (80-100); Mean Platelet Volume 10.5 fL (7.4-10.4); Monocytes # (auto) 0.33 K/uL (0.11-0.59); Monocytes % (auto) 9.4 %; Neutrophils # (auto) 1.34 K/uL (1.4-6.5); Neutrophils % (auto) 38.1 %; Platelet Count 275 K/uL (130-400); RDW Coefficient of Variation 12.8 % (11.5-14.5); RDW Standard Deviation 42.3 fL (36.4-46.3); Red Blood Count 3.77 M/uL (4.2-5.4); White Blood Count 3.51 K/uL (4.8-10.8)
[2022-01-02 07:08] LABS: BUN Creatinine Ratio 11.9 (10-20); Creatinine Clr Calc Pharmacy 75.8 ml/min; Est GFR (African American) 103.2 ml/min; Est GFR (Non-African American) 89.1 ml/min; Potassium 3.4 mmol/L (3.5-5.1)
[2022-01-02] MEDS: GABAPENTIN 300 MG CAP PO SCH ×2 (08:30→12:26)
[2022-01-02] MEDS: SACCHAROMYCES BOULARDII 250 MG CAP PO SCH (08:30)
[2022-01-02] MEDS: ENOXAPARIN INJ 40 MG/0.4 ML SYR SQ SCH (08:30)
[2022-01-02] MEDS: ASPIRIN 81 MG ECTAB PO SCH (08:30)
[2022-01-02] MEDS ORDERED: POTASSIUM CHLORIDE 10 MEQ TABCR PO STA (09:04)
--- NOTE | 2022-01-02 11:34 | Surgery Progress Note ---
Date of Service January 02, 2022 Assessment & Plan (1) Diverticulitis: Plan: pain has resolved afebrile, no leukocytosis tolerating diet Has received 3 days of IV Zosyn Plan: Doing well. Will advance to low fiber diet. She would like to go home today since she is feeling great. Okay from surgery standpoint for discharge on home antibiotics for another 7-10 days as she failed outpatient PO abx initially. She should follow-up with surgeon in [place] as already scheduled low fiber diet for 4-[address] Morales has seen and examined pt, agrees with above. Admission and Anticipated Discharge Date Admission Date: December 29, 2021 Subjective Feeling great no abdominal pain, no n/v tolerating full liquids having bowel movements , passing gas ready to go home Physical Exam Constitutional: WD/WN, vitals as above no acute distress and not ill appearing Neck: normal visual inspection and trachea midline Respiratory: normal respiratory effort; no respiratory distress, no labored breathing and no retractions Gastrointestinal (Abdomen): Inspection/Auscultation: abdomen normal to inspection; abdomen not distended Percussion/Palpation: abdomen soft; abdomen nontender, no guarding and abdomen not rigid Skin: no rashes, warm and dry Psychiatric: A+Ox3, euthymic affect Results & Data ([facility]) Vital Signs (Past 12 Hours) Vital Signs Temp Pulse Resp BP Pulse Ox 01/02/22 07:02 36.5 C 77 16 130/75 96 Laboratory Results 01/02/22 01/02/22 Range/Units 06:00 06:00 WBC 3.51 L (4.8-10.8) K/uL RBC 3.77 L (4.2-5.4) M/uL Hgb 11.5 L (12.0-16.0) g/dL Hct 34.2 L (37-47) % MCV 90.7 (80-100) fL MCH 30.5 (25-34) pg MCHC 33.6 (32-36) g/dL RDW Std Deviation 42.3 (36.4-46.3) fL RDW Coeff of Gisella 12.8 (11.5-14.5) % Plt Count 275 (130-400) K/uL MPV 10.5 H (7.4-10.4) fL Immature Gran % (Auto) 0.0 % Neut % (Auto) 38.1 % Lymph % (Auto) 47.9 % [place] % (Auto) 9.4 % Eos % (Auto) 3.7 % Baso % (Auto) 0.9 % Neut # (Auto) 1.34 L (1.4-6.5) K/uL Lymph # (Auto) 1.68 (1.2-3.4) K/uL [place] # (Auto) 0.33 (0.11-0.59) K/uL Eos # (Auto) 0.13 (0-0.5) K/uL Baso # (Auto) 0.03 (0-0.2) K/uL Immature Gran # (Auto) 0.00 (0.00-0.02) K/uL Sodium 139 (136-145) mmol/L Potassium 3.4 L (3.5-5.1) mmol/L Chloride 105 (98-107) mmol/L Carbon Dioxide 26 (21-32) mmol/L Anion Gap 8 (3-11) BUN 8 (6-23) mg/dl Creatinine 0.67 (0.6-1.2) mg/dl Est Cr Clr Drug Dosing 75.8 ml/min Est GFR ( Amer) 103.2 ml/min Est GFR (Non-Af Amer) 89.1 ml/min BUN/Creatinine Ratio 11.9 (10-20) Glucose 105 H (70-99(Fasting)) mg/dl Calcium 9.0 (8.5-10.1) mg/dl
--- NOTE | 2022-01-02 15:28 | Discharge Summary ---
Date of Service January 02, 2022 Admission HPI Per Admitting Provider CHIEF COMPLAINT: Abdominal pain. HISTORY OF PRESENT ILLNESS: This is a 71-year-old female with past medical history significant for history of calculus of kidney, psoriasis, psoriatic arthropathy, depression, hypertension, hyperlipidemia, who presents with abdominal pain. The patient was seen in the ER on 12/21/2021. At that time, CAT scan showed diverticulitis, was discharged with Augmentin. The patient finished the course of Augmentin yesterday, but pain is getting worse. That is the reason she came here and CAT preliminary report is showing worsening diverticulitis, so we were called for admission. The patient denies any fever or chills, had a normal bowel movement today. Denies any blood in stool or black stools. Normal bladder movements. Denies any nausea. She is only taking soups for the last about one to two weeks. Denies any chest pain, no shortness of breath. No headache, no blurred visions, no earache, no runny nose, no sore throat. Ambulating okay. Currently, resting comfortably and hemodynamically stable. Admission Exam Per Admitting Provider GENERAL: The patient is of moderate build, not in acute distress. VITAL SIGNS: Temperature 37.4, pulse 76, respiratory rate 16, blood pressure 131/75, oxygen 99% on room air. HEENT: Pupils equal, round and reactive to light. Oral mucosa moist and dry. NECK: No JVD, no neck masses. CARDIOVASCULAR: S1 and S2 heard. Regular rate and rhythm. No murmur, no gallop. RESPIRATORY SYSTEM: Normal AP diameter. No accessory muscle use. No wheezing, no crackles. ABDOMEN: Soft, bowel sounds present. Left lower quadrant tenderness present. Guarding present. No rigidity, no distention. CENTRAL NERVOUS SYSTEM: Cranial nerves II through XII are grossly intact, nonfocal. EXTREMITIES: No edema, no erythema. Principal Diagnosis 35 minutes Discharge Exam General- No acute distress Head- atraumatic Eyes- PERRL, EOMI, ENT- oropharynx clear Neck- supple, no JVD Lungs- clear to auscultation Heart- regular rhythm; no murmur Abdomen- normal bowel sounds, soft, nontender Extremities- no calf tenderness Neuro- alert, oriented x 3; PERRL, EOMI; no facial palsy; no dysarthria Skin- warm & dry Discharge Data Allergies Allergy/AdvReac Type Severity Reaction Status Date / Time codeine AdvReac Intermediate HIT OR Verified 12/28/21 21:37 MISS, NAUSEA Consultations 12/29/21 08:00 Consult General Surgery Routine Ordered Studies 12/28/21 20:53 CT abd pelvis IV con only Urgent CT abd pelvis IV con only CLINICAL HISTORY: llq abd pain . Previous history of diverticulitis COMPARISON STUDY: 12/20/2021 CT DOSE: 416.20 mGy.cm TECHNIQUE: Standard CT of the Abdomen and Pelvis was performed with IV contrast. A dose lowering technique was utilized adhering to the principles of ALARA. Contrast Volume: Optiray 320, 93 ml. The patient did not receive oral contrast. FINDINGS: Lung base: The lung bases are clear. Abdominal cavity: There is no evidence for abdominal mass, adenopathy or ascites. Liver: There is homogeneous attenuation of the liver parenchyma. There is no evidence for enhancing mass lesion. Spleen: There is homogeneous attenuation of the splenic parenchyma. There is no enhancing mass lesion. Pancreas: There is homogeneous attenuation of the pancreatic parenchyma. There is no evidence for mass lesion or peripancreatic fluid collection. Gall Bladder: Surgical clips are again seen. Adrenal glands: The adrenal glands are normal in size and attenuation. There is no evidence for enhancing mass lesion. Kidneys: There is homogeneous attenuation of the renal parenchyma bilaterally. There is no evidence for renal calculus or hydronephrosis. There is no evidence for enhancing mass. Bowel: Compared to the previous examination, there has been interval worsening of sigmoid diverticulitis. Increased perisigmoidal inflammatory changes and fluid are present along with thickening of the small bowel wall. There is a more localized fluid collection seen within the bowel wall as noted on image [id number] whic h may represent early abscess formation. There is again no evidence for perforation or free air. There has been interval development of mild pelvic ascites as well. Additionally, there has been interval development of moderate fecal stasis throughout the remainder the colon. No small bowel dilatation or obstruction is seen. There is a small hiatal hernia. Bladder: The bladder is within normal limits with no evidence for focal mass, calculus or diverticulum. : There is no evidence for pelvic mass or adenopathy. Vasculature: There is no evidence for aneurysmal dilatation of the abdominal a flash. Osseous structures: There is no acute osseous pathology. Degenerative changes are again seen within the spine. IMPRESSION: 1. Worsening of sigmoid diverticulitis with increased perisigmoidal inflammatory changes, wall thickening and fluid within the pelvis. 2. There is also suspicion of localized fluid within the wall of the sigmoid colon suggesting possible early abscess. 3. There is no evidence for perforation or free air. 4. Interval development of moderate fecal stasis. ACT 112: Negative or not required by law. Electronically signed by: Adiel Yi M.D. 12/29/2021 7:42 AM Dictated:12/29/21727 Transcribed: 12/29/21727 Hospital Course (1) Acute diverticulitis: Was in the ER on of this month with acute diverticulitis and was sent home on oral Augmentin Condition did not improve and the patient is back with increasing pain and nausea CT scan of the abdomen and pelvis showed:Acute Sigmoid diverticulitis with possible early abscess 1. Worsening of sigmoid diverticulitis with increased perisigmoidal inflammatory changes, wall thickening and fluid within the pelvis. 2. There is also suspicion of localized fluid within the wall of the sigmoid colon suggesting possible early abscess. 3. There is no evidence for perforation or free air. 4. Interval development of moderate fecal stasis. Has been on intravenous Zosyn General surgery consulted Tolerated low fiber diet Currently on IV Zosyn case discussed with Surgery that recommended to transition to PO abx Will change IV Zosyn to Cipro and flagyl Follow up with Surgery outpatient Ok from surgery standpoint to discharge home (2) Left lower quadrant abdominal pain: Secondary to diverticulitis (3) HTN (hypertension): Blood pressure seems to be in the lower side of normal (4) Anxiety and depression: Continue home medications (5) Hypercholesteremia: Continue current medication DVT prophylaxis Subcu Lovenox Total Time Total Time Spent Total Time Spent (In Minutes): 35 minutes Discharge Plan Discharge Items Patient Disposition: Home - Self-Care Reason For Visit: ABDOMINAL PAIN Discharge Diagnosis: Acute diverticulitis: Left lower quadrant abdominal pain: HTN (hypertension): Anxiety Depression: Hypercholesteremia: Activity: Resume your previous activity Non-emergency contact: Primary Care Provider and Surgeon Call non-emergency contact if: you have any medication questions Follow-up/Referrals: Mick Downey [Primary Care Provider] - (Dr Downey's office will call you with a hospital follow up appointment. ) Diet: Heart Healthy and Low Fiber Addtl Attending Provider Instructions: You were admitted at [facility] for abdominal pain due to diverticulitis Dr Downey's office will call you with a hospital follow up appointment. Follow up with surgery at [facility] Continue low fiber diet for 4 to 6 weeks Complete the course of the antibiotic with Cipro and flagyl Seek medical attention if your symptoms reoccur Increase potassium intake in your diet Pending Studies at Discharge: No Stand-Alone Forms: [facility], Smoking Cessation Medications and DC Order Prescriptions: New ciprofloxacin HCl [Cipro] 500 mg tablet 500 mg PO BID Qty: 14 RF: 0 metronidazole 500 mg tablet 500 mg PO Q8H 7 Days Qty: 21 RF: 0 Continued atorvastatin 10 mg tablet 10 mg PO QPM RF: 0 colesevelam 625 mg tablet 625 mg PO TID RF: 0 gabapentin 300 mg capsule 300 mg PO QID RF: 0 olmesartan 20 mg tablet 20 mg PO QPM RF: 0 bupropion HCl 150 mg tablet extended release 24 hr 150 mg PO QPM RF: 0 Tremfya 100 mg/mL Auto-Injector 100 mg SUBCUT .Q8WK RF: 0 hydrocodone-acetaminophen 5-325 mg Tablet 1 tab PO UD PRN (Reason: Pain) RF: 0 aspirin 81 mg Tablet,Delayed Release (Dr/Ec) 81 mg PO DAILY RF: 0 ondansetron 4 mg tablet,disintegrating 4 mg PO Q6H PRN (Reason: nausea and vomiting) Qty: 14 RF: 0 Saccharomyces boulardii [Florastor] 250 mg capsule 250 mg PO BID Qty: 20 RF: 0 Discharge Orders: Discharge Order (Routine); Ordered 01/02/22 Ordered By: Kamilah Mccrary Admission Data Admit Date/Time: 12/29/21 00:22 Attending Provider: Kamilah Mccrary Admit Provider: Elbert Pardo Primary Care Provider: Mick Downey Other Providers: Cedrick Morales ; Preet Juarez ; Brittany Aponte ; Evelyn Luo ; Daniel Pitt ; Harrison Driscoll ; Eliana Mcclain ; Sybil Cedeno ; Jag Parra Jr ; Sj Akins ; Benny Mendoza ; Celia Solano ; Diane Meyers Other Interventions: Discharge Summary Assessment (RN) Last Done: 01/02/22 15:44
== END 2022-01-02 16:37 | disposition home or self-care (01) | DRG 392 ==
LOC: ED 20:42 → SUATTDRO 12-29 00:22 → 3W 12-29 00:22
DX: Z98.49 Cataract extraction status, unspecified eye; I10 Essential (primary) hypertension; Z87.442 Personal history of urinary calculi; Z88.5 Allergy status to narcotic agent; F32.A Depression, unspecified; Z90.710 Acquired absence of both cervix and uterus; L40.59 Other psoriatic arthropathy; K57.20 Diverticulitis of large intestine with perforation and abscess without bleeding; Z79.84 Long term (current) use of oral hypoglycemic drugs; F41.9 Anxiety disorder, unspecified; E78.5 Hyperlipidemia, unspecified; Z90.49 Acquired absence of other specified parts of digestive tract; K21.9 Gastro-esophageal reflux disease without esophagitis; E78.00 Pure hypercholesterolemia, unspecified